=== PATIENT | male | born 1975 | race American Indian/Alaskan Native ===

== ENCOUNTER 2016-10-18 12:06 | Emergency (ER) | payer SELFPAY ==
[2016-10-18 13:53] LABS: Basophils % (Auto) 0.2 % (0.0-1.8); Eosinophils % (Auto) 0.9 % (0.0-4.3); Hematocrit 41.2 % (35.5-45.6); Hemoglobin 13.4 gm/dl (11.8-15.2); Mean Corpuscular HGB Conc 33 % (32-34); Mean Corpuscular Hemoglobin 29 pg (28-32); Mean Corpuscular Volume 88 fl (84-94); Platelet Count 354 K/mm3 (140-440); Red Blood Count 4.72 M/mm3 (3.65-5.03); Red Cell Distribution Width 14.2 % (13.2-15.2); White Blood Count 13.9 K/mm3 (4.5-11.0)
[2016-10-18 14:13] LABS: BUN/Creatinine Ratio 18.57; Blood Urea Nitrogen 13 mg/dL (9-20); Calcium 9.3 mg/dL (8.4-10.2); Carbon Dioxide 29 mmol/L (22-30); Chloride 100.5 mmol/L (98-107); Glucose 121 mg/dL (75-100); Sodium 141 mmol/L (137-145)
[2016-10-18] MEDS ORDERED: ZOFRAN ONE (14:22)
[2016-10-18 14:23] LABS: Anion Gap 15 mmol/L
[2016-10-18] MEDS ORDERED: ANTIVERT ONE (14:23)
[2016-10-18] MEDS ORDERED: ANTIVERT PO ONE (14:27)
[2016-10-18] MEDS ORDERED: ZOFRAN IV ONE (14:27)
--- NOTE | 2016-10-18 15:11 | Cat Scan Report ---
FINAL REPORT PROCEDURE: CT HEAD/BRAIN WO CON TECHNIQUE: Computerized tomography of the head was performed without contrast material. HISTORY: vetigo, vomiting COMPARISON: No prior studies are available for comparison. FINDINGS: Skull and scalp: Normal. Paranasal sinuses: Mucosal thickening left maxillary sinus and left lower frontal sinus anterior ethmoid chamber. Ventricles and subarachnoid spaces: Normal. Cerebrum: No evidence of hemorrhage, acute infarction or mass . Cerebellum and brainstem: No evidence of hemorrhage, acute infarction or mass. Vasculature: Normal. Comments: Morbid obesity. IMPRESSION: No acute intracranial disease suspected
--- NOTE | 2016-10-18 15:20 | Emergency Department Report ---
ED Dizziness HPI - General Chief Complaint: Chest Pain Stated Complaint: CHEST PAIN/DIZZINESS Time Seen by Provider: 10/18/16 14:15 Source: EMS Mode of arrival: Stretcher Limitations: No Limitations - History of Present Illness Initial Comments: 41-year-old male with a past medical history of obesity hypertension presents to the hospital complaining of dizziness since this a.m. Contrary to triage patient denies chest pain. Patient states he's had a toothache for several days and take [id number] acetaminophen pills and ibuprofen. Today he developed a spinning sensation worse with sitting up and walking. Positive associated nausea and vomiting that started here. He denies headache, chest pain, shortness of breath, fever, focal weakness, tinnitus, focal numbness, or diarrhea. Pt non compliant with BP meds x several months - Related Data Previous Rx's Medication Instructions Recorded Last Taken Type Albuterol Sulfate [Ventolin HFA] 2 puff IH Q4H PRN #1 hfa.aer.ad 11/04/14 Unknown Rx Diazepam Tab [Valium] 5 mg PO TID PRN #14 tablet 10/18/16 Unknown Rx Lisinopril/Hydrochlorothiazide 1 each PO DAILY #30 tablet 10/18/16 Unknown Rx [Zestoretic 20-12.5 mg] Meclizine [Antivert] 25 mg PO TID PRN #30 tablet 10/18/16 Unknown Rx Ondansetron [Zofran Odt] 4 mg PO Q8HR PRN #20 tab.rapdis 10/18/16 Unknown Rx Allergies Allergy/AdvReac Type Severity Reaction Status Date / Time No Known Allergies Allergy Verified 10/23/15 20:40 ED Review of Systems ROS: Stated complaint: CHEST PAIN/DIZZINESS Other details as noted in HPI Comment: All other systems reviewed and negative Other: Constitutional: No fevers chills Eyes: No eye pain visual changes ENT: No ear pain or throat pain Neck: Denies pain Respiratory: Denies cough wheezing shortness of breath Cardiovascular: Denies chest pain, palpitations, syncope GI: Denies abdominal pain : Denies dysuria, urinary frequency, or urgency Musculoskeletal: Denies back pain Skin: Denies rash, lesions, erythema Neurologic: Denies headache, numbness, weakness Psychiatric: Denies suicidal ideation, hallucinations ED Past Medical Hx - Past Medical History Hx Hypertension: Yes Hx Asthma: Yes - Surgical History Additional Surgical History: cyst removed on left leg - Social History Smoking Status: Current Every Day Smoker Substance Use Type: None - Medications Home Medications: Home Medications Medication Instructions Recorded Confirmed Last Taken Type Albuterol Sulfate [Ventolin HFA] 2 puff IH Q4H PRN #1 hfa.aer.ad 11/04/14 Unknown Rx Diazepam Tab [Valium] 5 mg PO TID PRN #14 tablet 10/18/16 Unknown Rx Lisinopril/Hydrochlorothiazide 1 each PO DAILY #30 tablet 10/18/16 Unknown Rx [Zestoretic 20-12.5 mg] Meclizine [Antivert] 25 mg PO TID PRN #30 tablet 10/18/16 Unknown Rx Ondansetron [Zofran Odt] 4 mg PO Q8HR PRN #20 tab.rapdis 10/18/16 Unknown Rx ED Physical Exam - General Limitations: No Limitations - Other Other exam information: General: No limitations, patient is alert in no acute distress Head exam: Atraumatic, normocephalic Eyes exam: Normal appearance, pupils equal reactive to light, extraocular movements intact, nystagmus with left gaze and upper gaze ENT: Moist mucous membrane, normal oropharynx, fractured tooth number 12 Neck exam: Normal inspection, full range of motion, no meningismus nontender Respiratory exam: Clear to auscultation bilateral, no wheezes, rales, crackles Cardiovascular: Normal rate and rhythm, normal heart sounds Abdomen: Soft, nondistended, and nontender, with normal bowel sounds, no rebound, or guarding Extremity: Full range of motion normal inspection no deformity Back: Normal Inspection, full range of motion, no tenderness Neurologic: Alert, oriented x3, cranial nerves intact, no motor or sensory deficit, gwqrxy-[id number] function intact Psychiatric: normal affect, normal mood Skin: Warm, dry, intact ED Course Vital Signs 10/18/16 10/18/16 14:16 16:20 Pulse Rate 55 L 60 Respiratory 17 19 Rate Blood Pressure 140/90 169/99 [Left] O2 Sat by Pulse 100 100 Oximetry - Reevaluation(s) Reevaluation #1: 10/18/16 18:27 Initially after meclizine patient still complained of vertigo. After Valium 5 mg by mouth symptoms have improved well enough that patient could ambulate although still has nystagmus ED Medical Decision Making - Lab Data Result diagrams: 10/18/16 13:43 10/18/16 13:39 Lab Results 10/18/16 10/18/16 Range/Units 13:39 13:43 WBC 13.9 H (4.5-11.0) K/mm3 RBC 4.72 (3.65-5.03) M/mm3 Hgb 13.4 (11.8-15.2) gm/dl Hct 41.2 (35.5-45.6) % MCV 88 (84-94) fl MCH 29 (28-32) pg MCHC 33 (32-34) % RDW 14.2 (13.2-15.2) % Plt Count 354 (140-440) K/mm3 Lymph % (Auto) 10.5 L (13.4-35.0) % Warren % (Auto) 3.2 (0.0-7.3) % Eos % (Auto) 0.9 (0.0-4.3) % Baso % (Auto) 0.2 (0.0-1.8) % Lymph # 1.5 (1.2-5.4) K/mm3 Warren # 0.4 (0.0-0.8) K/mm3 Eos # 0.1 (0.0-0.4) K/mm3 Baso # 0.0 (0.0-0.1) K/mm3 Seg Neutrophils % 85.2 H (40.0-70.0) % Seg Neutrophils # 11.9 H (1.8-7.7) K/mm3 Sodium 141 (137-145) mmol/L Potassium 4.0 (3.6-5.0) mmol/L Chloride 100.5 (98-107) mmol/L Carbon Dioxide 29 (22-30) mmol/L Anion Gap 15 mmol/L BUN 13 (9-20) mg/dL Creatinine 0.7 L (0.8-1.5) mg/dL Estimated GFR > 60 ml/min BUN/Creatinine Ratio 18.57 % Glucose 121 H (75-100) mg/dL Calcium 9.3 (8.4-10.2) mg/dL Troponin T < 0.010 (0.00-0.029) ng/mL - Radiology Data Radiology results: report reviewed (ct head: naf) - Medical Decision Making CT lab work unremarkable. Patient was treated for peripheral vertigo and follow -up will be encouraged. BP med will be refilled - Differential Diagnosis vertigo, Mnire's, electrolyte abnormality Critical Care Time: No Critical care attestation.: If time is entered above; I have spent that time in minutes in the direct care of this critically ill patient, excluding procedure time. ED Disposition Clinical Impression: Peripheral vertigo, Noncompliance with medication regimen HTN (hypertension) Qualifiers: Hypertension type: essential hypertension Qualified Code(s): I10 - Essential ( primary) hypertension Fracture, tooth Qualifiers: Encounter type: initial encounter Disposition: DISCHARGED TO HOME OR SELFCARE Is pt being admited?: No Does the pt Need Aspirin: No Condition: Stable Instructions: Vertigo (ED), Hypertension (ED) Additional Instructions: Take the medication as prescribed. Return if symptom worsen. Do not drive if severe dizziness persists. Both Meclizine and Valium cause sedation therefore driving not recommended while taking these medications Prescriptions: Diazepam Tab [Valium] 5 mg PO TID PRN #14 tablet PRN Reason: Vertigo Lisinopril/Hydrochlorothiazide [Zestoretic 20-12.5 mg] 1 each PO DAILY #30 tablet Meclizine [Antivert] 25 mg PO TID PRN #30 tablet PRN Reason: Vertigo Ondansetron [Zofran Odt] 4 mg PO Q8HR PRN #20 tab.rapdis PRN Reason: Vomiting Referrals: [facility] [Provider Group] - 3-5 Days CHRISTINA BOBBY MD [Staff Physician] - 3-5 Days (ENT) Time of Disposition: 18:28
[2016-10-18] MEDS ORDERED: VALIUM PO ONE (16:24)
[2016-10-18] MEDS ORDERED: ZESTRIL PO ONE (18:29)
[2016-10-18] MEDS ORDERED: HCTZ PO ONE (18:30)
[2016-10-18 19:07] VITALS: BP 197/90
== END 2016-10-18 19:01 | disposition home or self-care (01) ==
LOC: ED 12:06
DX: S02.5XXA Fracture of tooth (traumatic), initial encounter for closed fracture (principal); R42 Dizziness and giddiness; Z91.14 Patient's other noncompliance with medication regimen; J45.909 Unspecified asthma, uncomplicated; F17.200 Nicotine dependence, unspecified, uncomplicated; I10 Essential (primary) hypertension; X58.XXXA Exposure to other specified factors, initial encounter; Y93.9 Activity, unspecified; Y92.9 Unspecified place or not applicable; Y99.9 Unspecified external cause status
CPT/HCPCS: 36415; 70450; 80048; 84484; 85025; 96374; 99285; J2405

== ENCOUNTER 2017-06-20 00:31 | Emergency (ER) | payer OTHER ==
[2017-06-20] MEDS ORDERED: CATAPRES PO ONE (03:33)
[2017-06-20 06:13] LABS: Basophils % (Auto) 0.3 % (0.0-1.8); Eosinophils % (Auto) 2.4 % (0.0-4.3); Hemoglobin 13.8 gm/dl (11.8-15.2); Mean Corpuscular HGB Conc 33 % (32-34); Mean Corpuscular Hemoglobin 29 pg (28-32); Mean Corpuscular Volume 87 fl (84-94); Platelet Count 327 K/mm3 (140-440); Red Blood Count 4.81 M/mm3 (3.65-5.03); Red Cell Distribution Width 14.2 % (13.2-15.2)
[2017-06-20 06:17] LABS: Anion Gap 16 mmol/L; BUN/Creatinine Ratio 14.28; Blood Urea Nitrogen 10 mg/dL (9-20); Calcium 9.8 mg/dL (8.4-10.2); Carbon Dioxide 31 mmol/L (22-30); Chloride 98.2 mmol/L (98-107); Glucose 96 mg/dL (75-100); Potassium 3.5 mmol/L (3.6-5.0); Sodium 142 mmol/L (137-145)
[2017-06-20] MEDS ORDERED: ZOFRAN IV ONE (11:50)
[2017-06-20] MEDS ORDERED: APRESOLINE IV ONE (11:52)
--- NOTE | 2017-06-20 12:16 | Emergency Department Report ---
ED Dizziness HPI - General Chief Complaint: Dizziness Stated Complaint: DIZZINESS Time Seen by Provider: 06/20/17 11:40 Source: patient Mode of arrival: Ambulatory Limitations: No Limitations - History of Present Illness Initial Comments: 41-year-old male presents to the ER with complaints of dizziness, lightheadedness, headaches 2 days. Patient is a known hypertensive, noncompliant with medications. He denies chest pain, no palpitations, no shortness of breath, nausea vomiting, no diarrhea. MD Complaint: dizziness, lightheadedness -: Gradual, days(s) (2) Timing: gradual onset Description: lightheadedness, off-balance History of Same: No History of Trauma: No Severity: moderate Improves With: nothing Worsens With: nothing Associated Symptoms: weakness. denies: ataxia, chest pain, confusion, cough, diaphoresis, fever/chills, loss of appetite, malaise, rash, seizure, shortness of breath, syncope, other - Related Data Previous Rx's Medication Instructions Recorded Last Taken Type Albuterol Sulfate [Ventolin HFA] 2 puff IH Q4H PRN #1 hfa.aer.ad 11/04/14 Unknown Rx Diazepam Tab [Valium] 5 mg PO TID PRN #14 tablet 10/18/16 Unknown Rx Lisinopril/Hydrochlorothiazide 1 each PO DAILY #30 tablet 10/18/16 Unknown Rx [Zestoretic 20-12.5 mg] Meclizine [Antivert] 25 mg PO TID PRN #30 tablet 10/18/16 Unknown Rx Ondansetron [Zofran Odt] 4 mg PO Q8HR PRN #20 tab.rapdis 10/18/16 Unknown Rx Allergies Allergy/AdvReac Type Severity Reaction Status Date / Time No Known Allergies Allergy Verified 10/23/15 20:40 ED Review of Systems ROS: Stated complaint: DIZZINESS Other details as noted in HPI Constitutional: malaise, weakness. denies: chills, fever Eyes: other (blurred vision) ENT: denies: ear pain, throat pain, dental pain, hearing loss Respiratory: denies: no symptoms reported, cough, orthopnea, shortness of breath Cardiovascular: denies: chest pain, palpitations, dyspnea on exertion, edema, syncope, paroxysmal nocturnal dyspnea Endocrine: no symptoms reported Gastrointestinal: denies: abdominal pain, nausea, vomiting, diarrhea, constipation, hematemesis, melena Genitourinary: denies: urgency, dysuria, frequency, hematuria, discharge Musculoskeletal: denies: back pain, joint swelling, arthralgia Neurological: headache, weakness, other (dizziness) ED Past Medical Hx - Past Medical History Hx Hypertension: Yes Hx Asthma: Yes Additional medical history: OBESITY, VERTIGO - Surgical History Additional Surgical History: cyst removed on left leg - Social History Smoking Status: Current Every Day Smoker Substance Use Type: None - Medications Home Medications: Home Medications Medication Instructions Recorded Confirmed Last Taken Type Albuterol Sulfate [Ventolin HFA] 2 puff IH Q4H PRN #1 hfa.aer.ad 11/04/14 Unknown Rx Diazepam Tab [Valium] 5 mg PO TID PRN #14 tablet 10/18/16 Unknown Rx Lisinopril/Hydrochlorothiazide 1 each PO DAILY #30 tablet 10/18/16 Unknown Rx [Zestoretic 20-12.5 mg] Meclizine [Antivert] 25 mg PO TID PRN #30 tablet 10/18/16 Unknown Rx Ondansetron [Zofran Odt] 4 mg PO Q8HR PRN #20 tab.rapdis 10/18/16 Unknown Rx ED Physical Exam - General Limitations: No Limitations General appearance: alert, in distress ([id number]), other (obese patient) - Head Head exam: Present: atraumatic, normocephalic, normal inspection - Eye Eye exam: Present: normal appearance, PERRL, EOMI - ENT ENT exam: Present: normal exam, normal orophraynx, mucous membranes moist - Neck Neck exam: Present: normal inspection, full ROM. Absent: tenderness, meningismus, lymphadenopathy, thyromegaly - Respiratory Respiratory exam: Present: normal lung sounds bilaterally. Absent: respiratory distress, wheezes, rales, rhonchi, stridor, chest wall tenderness, accessory muscle use, decreased breath sounds, prolonged expiratory - Cardiovascular Cardiovascular Exam: Present: regular rate, normal rhythm, normal heart sounds. Absent: bradycardia, tachycardia, irregular rhythm, systolic murmur, diastolic murmur - GI/Abdominal GI/Abdominal exam: Present: soft, distended (obese abdomen), normal bowel sounds. Absent: tenderness, guarding, rebound, hypoactive bowel sounds, organomegaly - Rectal Rectal exam: Present: deferred - Extremities Exam Extremities exam: Present: normal inspection, full ROM, normal capillary refill. Absent: pedal edema, joint swelling, calf tenderness - Back Exam Back exam: Present: normal inspection, full ROM. Absent: tenderness, CVA tenderness (R), CVA tenderness (L), muscle spasm, paraspinal tenderness, vertebral tenderness - Neurological Exam Neurological exam: Present: alert, altered, CN II-XII intact ED Course Vital Signs 06/20/17 06/20/17 06/20/17 00:31 03:27 03:55 Temperature 98.1 F 98.1 F Pulse Rate 68 68 68 Respiratory 20 Rate Blood Pressure 216/116 216/112 Blood Pressure 216/116 [Left] O2 Sat by Pulse 98 98 Oximetry 06/20/17 06/20/17 06/20/17 10:10 10:16 11:48 Temperature Pulse Rate 101 H 107 H 73 Respiratory 18 18 22 Rate Blood Pressure 135/81 144/87 Blood Pressure [Left] O2 Sat by Pulse 100 100 Oximetry 06/20/17 06/20/17 06/20/17 12:01 12:15 12:24 Temperature Pulse Rate 71 70 82 Respiratory 18 15 Rate Blood Pressure 188/99 144/87 197/95 Blood Pressure [Left] O2 Sat by Pulse 98 100 Oximetry 06/20/17 06/20/17 12:31 13:15 Temperature Pulse Rate 82 Respiratory 15 Rate Blood Pressure 197/95 197/95 Blood Pressure [Left] O2 Sat by Pulse 98 100 Oximetry ED Medical Decision Making - Lab Data Result diagrams: 06/20/17 05:20 06/20/17 12:17 - EKG Data -: EKG Interpreted by Ia EKG shows normal: sinus rhythm - EKG Data 06/20/17 13:44 EKG shows normal sinus rhythm rate of 87 beats per minutes, leftward axis, left ventricular hypertrophy with repolarization abnormalities, nonspecific ST changes in V1 and V2., T-wave inversion in aVL - Medical Decision Making 41-year-old noncompliant male with history of hypertension, Blood pressures remains elevated in ED despite attempts at decreasing it with 20 mg Hydrallazine.. D/w Hospitaliist, he accepts, pt admission Critical Care Time: No Critical care attestation.: If time is entered above; I have spent that time in minutes in the direct care of this critically ill patient, excluding procedure time. ED Disposition Clinical Impression: Accelerated hypertension Disposition: DC-09 OP ADMIT IP TO THIS HOSP Is pt being admited?: Yes Does the pt Need Aspirin: Yes Condition: Stable Instructions: Hypertension (ED) Referrals: PRIMARY CARE, [Primary Care Provider] - 3-5 Days Time of Disposition: 13:51
--- NOTE | 2017-06-20 12:41 | XRay Report ---
AP CHEST: HISTORY: Lightheadedness, dizziness, syncope AP view of the chest demonstrates a normal mediastinal and cardiac contour with clear lungs and normal bony and soft tissue structures. IMPRESSION: Unremarkable AP chest.
--- NOTE | 2017-06-20 13:00 | Cat Scan Report ---
CT HEAD WITHOUT CONTRAST: HISTORY: Lightheadedness, dizziness. Serial contiguous axial images were obtained through the cranium. Intravenous contrast material was not administered. The ventricles are normal in size and appearance. There is no mass effect or midline shift. No areas of abnormally increased or decreased attenuation are seen. No mass lesion is seen. The mastoid air cells and visualized portions of the sinuses are normal. Chronic left medial orbital wall fracture is noted. IMPRESSION: Cranial CT scan within normal limits.
[2017-06-20 13:04] LABS: INR 0.91 (0.87-1.13)
[2017-06-20 13:09] LABS: Creatine Kinase MB 1.9 ng/mL (0.0-4.0)
[2017-06-20 13:10] LABS: Alanine Aminotransferase 58 units/L (7-56); Albumin 4.3 g/dL (3.9-5); Albumin/Globulin Ratio 1.2 %; Alkaline Phosphatase 94 units/L (35-129); Anion Gap 19 mmol/L; BUN/Creatinine Ratio 16.66; Blood Urea Nitrogen 10 mg/dL (9-20); Calcium 9.8 mg/dL (8.4-10.2); Carbon Dioxide 25 mmol/L (22-30); Chloride 98.3 mmol/L (98-107); Creatine Kinase 122 units/L (55-170); Glucose 97 mg/dL (75-100); Potassium 3.6 mmol/L (3.6-5.0); Sodium 139 mmol/L (137-145)
[2017-06-20 13:37] LABS: Urine Drugs of Abuse Note Disclamer
--- NOTE | 2017-06-20 13:46 | History and Physical Report ---
Medications and Allergies Allergies Allergy/AdvReac Type Severity Reaction Status Date / Time No Known Allergies Allergy Verified 10/23/15 20:40 Home Medications Medication Instructions Recorded Confirmed Last Taken Type Albuterol Sulfate [Ventolin HFA] 2 puff IH Q4H PRN #1 hfa.aer.ad 11/04/14 Unknown Rx Diazepam Tab [Valium] 5 mg PO TID PRN #14 tablet 10/18/16 Unknown Rx Lisinopril/Hydrochlorothiazide 1 each PO DAILY #30 tablet 10/18/16 Unknown Rx [Zestoretic 20-12.5 mg] Meclizine [Antivert] 25 mg PO TID PRN #30 tablet 10/18/16 Unknown Rx Ondansetron [Zofran Odt] 4 mg PO Q8HR PRN #20 tab.rapdis 10/18/16 Unknown Rx Exam - Constitutional Vitals: Temp Pulse Resp BP Pulse Ox 98.1 F 82 15 197/95 100 06/20/17 03:27 06/20/17 12:31 06/20/17 12:31 06/20/17 13:15 06/20/17 13:15 Results - Labs CBC & Chem 7: 06/20/17 05:20 06/20/17 12:17 Labs: Abnormal lab results 06/20/17 06/20/17 Range/Units 05:20 12:17 Potassium 3.5 L (3.6-5.0) mmol/L Carbon Dioxide 31 H (22-30) mmol/L Creatinine 0.7 L 0.6 L (0.8-1.5) mg/dL ALT 58 H (7-56) units/L
[2017-06-20] MEDS ORDERED: ZESTRIL PO ONE (13:47)
[2017-06-20] MEDS ORDERED: HCTZ PO ONE (13:47)
[2017-06-20] MEDS ORDERED: ECOTRIN PO ONE (13:50)
[2017-06-20 14:05] LABS: Bilirubin,Urine NEG (Negative); Blood,Urine NEG (Negative); Ketones,Urine NEG (Negative); Leukocyte Esterase,Urine SM (Negative); Mucus,Urine 2+ /HPF; Nitrite,Urine NEG (Negative)
[2017-06-20 14:54] VITALS: BP 138/82
[2017-06-20] MEDS ORDERED: ZOSYN/NS 3.375GM/50ML 3.375 GM/50 ML BAG IV SCH (16:00)
== END 2017-06-20 16:12 | disposition admitted as inpatient to this hospital (09) ==
LOC: ED 00:31
DX: I10 Essential (primary) hypertension (principal); J45.909 Unspecified asthma, uncomplicated; F17.200 Nicotine dependence, unspecified, uncomplicated
CPT/HCPCS: 36415; 70450; 71010; 80048; 80053; 80307; 81001; 82550; 82553; 84484; 85025; 85379; 85610; 93005; 93010; 96374; 96375; 99285; G0480; J0360; J2405; 80320

== ENCOUNTER 2017-11-17 03:52 | Inpatient (IN) | payer OTHER ==
[2017-11-17] MEDS ORDERED: PROVENTIL IH ONE ×2 (04:07→05:23)
[2017-11-17] MEDS ORDERED: ATROVENT IH ONE ×2 (04:07→05:23)
[2017-11-17] MEDS ORDERED: MAGNESIUM SULFATE 2GM/50ML 2 GM/50 ML BAG IV ONE ×2 (04:12→04:15)
[2017-11-17] MEDS ORDERED: APRESOLINE IV ONE (04:28)
--- NOTE | 2017-11-17 04:55 | XRay Report ---
FINAL REPORT EXAM: XR CHEST 1V AP HISTORY: Chest Pain TECHNIQUE: A portable upright view of the chest was submitted. FINDINGS: The heart is [id number] enlarged. The lungs are clear. Pleural fluid is not seen. The bones and soft tissues reveal generalized obesity. IMPRESSION: Cardiomegaly. No acute process in the chest.
[2017-11-17 05:22] LABS: Basophils % (Auto) 0.3 % (0.0-1.8); Eosinophils # (Auto) 0.1 K/mm3 (0.0-0.4); Eosinophils % (Auto) 1.1 % (0.0-4.3); Hematocrit 39.5 % (35.5-45.6); Hemoglobin 12.8 gm/dl (11.8-15.2); Lymphocytes # (Auto) 2.6 K/mm3 (1.2-5.4); Lymphocytes % (Auto) 20.4 % (13.4-35.0); Mean Corpuscular HGB Conc 32 % (32-34); Mean Corpuscular Hemoglobin 29 pg (28-32); Mean Corpuscular Volume 88 fl (84-94); Monocytes # (Auto) 0.4 K/mm3 (0.0-0.8); Monocytes % (Auto) 3.1 % (0.0-7.3); Platelet Count 301 K/mm3 (140-440); Red Blood Count 4.47 M/mm3 (3.65-5.03); Red Cell Distribution Width 13.6 % (13.2-15.2)
--- NOTE | 2017-11-17 05:35 | Emergency Department Report ---
HPI - General Chief Complaint: Dyspnea/Respdistress Time Seen by Provider: 11/17/17 04:26 - HPI HPI: 42-year-old Karen male presents to the emergency department from home with complaint of shortness of breath that started this morning. He has a history of asthma and uses albuterol inhaler and nebulizer without much relief. He complains of a dry cough, some chest wall pain with coughing, wheezing. He also presents with very elevated blood pressure and has a history of hypertension but is not taking his meds about 2 months. He used to be on lisinopril and said that it caused some swelling of his lips so he stopped taking it. He does not have a primary care physician. No recent travel. Denies any illicit drug use or recent alcohol use. ED Past Medical Hx - Past Medical History Previous Medical History?: Yes Hx Hypertension: Yes Hx Asthma: Yes Additional medical history: OBESITY, VERTIGO - Surgical History Past Surgical History?: Yes Additional Surgical History: cyst removed on left leg - Social History Smoking Status: Current Every Day Smoker Substance Use Type: None - Medications Home Medications: Home Medications Medication Instructions Recorded Confirmed Last Taken Type Albuterol Sulfate [Ventolin HFA] 2 puff IH Q4H PRN #1 hfa.[email or web address].ad 11/04/14 Unknown Rx ED Review of Systems ROS: Stated complaint: ASTHMA Other details as noted in HPI Comment: All other systems reviewed and negative Constitutional: denies: chills, fever Eyes: denies: eye pain, eye discharge, vision change ENT: denies: ear pain, throat pain Respiratory: cough, shortness of breath, wheezing Cardiovascular: denies: palpitations, edema Gastrointestinal: denies: abdominal pain, nausea, diarrhea Genitourinary: denies: urgency, dysuria Musculoskeletal: denies: back pain, joint swelling, arthralgia Skin: denies: rash, lesions Neurological: denies: headache, weakness, paresthesias Physical Exam - Physical Exam Vital Signs: Vital Signs 11/17/17 11/17/17 11/17/17 03:58 04:10 04:23 Temperature 98.7 F Pulse Rate 106 H 110 H Pulse Rate [ 107 H Anterior Bilateral Throughout] Respiratory 32 H Rate Respiratory 36 H Rate [Anterior Bilateral Throughout] Blood Pressure 238/110 O2 Sat by Pulse 98 100 Oximetry 02/11/17/17 11/17/17 04:35 04:46 05:27 Temperature Pulse Rate 106 H Pulse Rate [ 97 H 115 H Anterior Bilateral Throughout] Respiratory Rate Respiratory 20 24 Rate [Anterior Bilateral Throughout] Blood Pressure 226/129 O2 Sat by Pulse Oximetry Physical Exam: GENERAL: The patient is well-developed well-nourished. HENT: Normocephalic. Atraumatic. Patient has moist mucous membranes. EYES: Extraocular motions are intact. Pupils equal reactive to light bilaterally. NECK: Supple. Trachea is midline. CHEST/LUNGS: Mild to moderate wheezing throughout the chest. There is tachypnea with some accessory muscle use and conversational dyspnea. There is some respiratory distress noted. HEART/CARDIOVASCULAR: Regular. There is mild to moderate tachycardia. There is no murmur. ABDOMEN: Abdomen is soft, nontender. Patient has normal bowel sounds. Morbidly obese habitus. SKIN: Skin is warm and dry. NEURO: The patient is awake, alert, and oriented. The patient is cooperative. The patient has no focal neurologic deficits. The patient has normal speech. MUSCULOSKELETAL: There is no tenderness or deformity. There is no limitation range of motion. There is no evidence of acute injury. ED Course Vital Signs 11/17/17 11/17/17 11/17/17 03:58 04:10 04:23 Temperature 98.7 F Pulse Rate 106 H 110 H Pulse Rate [ 107 H Anterior Bilateral Throughout] Respiratory 32 H Rate Respiratory 36 H Rate [Anterior Bilateral Throughout] Blood Pressure 238/110 O2 Sat by Pulse 98 100 Oximetry 11/17/17 11/17/17 11/17/17 04:35 04:46 05:27 Temperature Pulse Rate 106 H Pulse Rate [ 97 H 115 H Anterior Bilateral Throughout] Respiratory Rate Respiratory 20 24 Rate [Anterior Bilateral Throughout] Blood Pressure 226/129 O2 Sat by Pulse Oximetry ED Medical Decision Making - Lab Data Result diagrams: 11/18/17 05:07 11/18/17 05:07 - EKG Data -: EKG Interpreted by Me EKG shows normal: sinus rhythm, axis (left axis deviation), intervals, QRS complexes (LVH), ST-T waves (T-wave inversions to the lateral leads 1 and aVL) Rate: tachycardia (104 bpm) - EKG Data When compared to previous EKG there are: changes noted (T-wave inversions to the lateral leads 1 and aVL) Interpretation: other (sinus rhythm, left axis deviation, tachycardia at 104 bpm , T-wave inversions to the lateral leads 1 and aVL) - Radiology Data Radiology results: report reviewed, image reviewed interpreted by me: Chest x-ray does not show any acute process. There are no pleural effusions, obvious pneumonia and there is no pneumothorax. EXAM: CT ANGIO CHEST HISTORY: sob, elevated dimer TECHNIQUE: A CT angiogram was performed following the intravenous injection of 100 cc of Omnipaque 350. Rotational, sagittal and coronal MIP reconstructions were obtained. FINDINGS: There is no evidence of pulmonary embolus or aortic dissection. The heart size is normal. There is no evidence of pericardial effusion or lymphadenopathy. The lungs are negative for infiltrates or effusions. There scarring in the left lower lobe. In the upper abdomen the adrenal glands appear normal. The skeletal structures reveal multilevel disc degeneration in the thoracic spine. At the thoracic inlet the thyroid gland appears normal. IMPRESSION: No evidence of pulmonary embolus or aortic dissection. Localized scarring in the left lower lobe. No acute process in the chest. Transcribed By: RB Dictated By: ARNOL LEÓN MD Electronically Authenticated By: ARNOL LEÓN MD Signed Date/Time: 11/17/17 0304 - Medical Decision Making Patient presents with very elevated blood pressure with medication compliance, as well as some shortness of breath and/or respiratory distress that appears consistent with an asthma exacerbation. Chest x-ray does not show any pneumonia or any other acute processes. His EKG does not show any ST elevation LA or dysrhythmia but there are some new T-wave inversions to the lateral leads that were not seen there from 2016. So far his labs and mostly unremarkable except for the d-dimer. This includes no leukocytosis, electrolyte abnormalities, renal insufficiency with glucose abnormalities. Because of his shortness of breath and tachycardia, despite no hypoxia, a d-dimer was done that came back elevated at greater than 1000. This reason the patient will have a CT angiography of the chest done. He has been given some hydralazine and Cardizem his blood pressure has improved but still remains elevated. Once the patient received a long breathing treatment, steroids, magnesium, the patient's breathing has improved and he no longer appears to be in respiratory distress. For his intermittent chest discomfort, asthma exacerbation, hypertensive urgency, the patient will be admitted to the hospital. I discussed the patient with the overnight hospitalist, Dr. Castillo, who was asked for the morning hospitalist team to be notified when the CT angiography has been completed. - Differential Diagnosis Asthma, Pneumonia, PE, LA Critical Care Time: No Critical care attestation.: If time is entered above; I have spent that time in minutes in the direct care of this critically ill patient, excluding procedure time. ED Disposition Clinical Impression: Hypertensive urgency, Morbid obesity, Respiratory distress Asthma exacerbation Qualifiers: Asthma severity: unspecified severity Chest pain Qualifiers: Chest pain type: unspecified Qualified Code(s): R07.9 - Chest pain, unspecified Disposition: 09 OP ADMIT IP TO THIS HOSP Is pt being admited?: Yes Does the pt Need Aspirin: Yes Condition: Stable Time of Disposition: 06:19
[2017-11-17 05:37] LABS: BUN/Creatinine Ratio 16; Blood Urea Nitrogen 13 mg/dL (9-20); Calcium 9.2 mg/dL (8.4-10.2); Hemolysis Index 10
[2017-11-17 05:38] LABS: INR 0.93 (0.87-1.13)
[2017-11-17] MEDS ORDERED: CARDIZEM IV ONE (05:44)
[2017-11-17] MEDS ORDERED: BABY ASPIRIN PO ONE (06:19)
--- NOTE | 2017-11-17 07:09 | Cat Scan Report ---
FINAL REPORT EXAM: CT ANGIO CHEST HISTORY: sob, elevated dimer TECHNIQUE: A CT angiogram was performed following the intravenous injection of 100 cc of Omnipaque 350. Rotational, sagittal and coronal MIP reconstructions were obtained. FINDINGS: There is no evidence of pulmonary embolus or aortic dissection. The heart size is normal. There is no evidence of pericardial effusion or lymphadenopathy. The lungs are negative for infiltrates or effusions. There scarring in the left lower lobe. In the upper abdomen the adrenal glands appear normal. The skeletal structures reveal multilevel disc degeneration in the thoracic spine. At the thoracic inlet the thyroid gland appears normal. IMPRESSION: No evidence of pulmonary embolus or aortic dissection. Localized scarring in the left lower lobe. No acute process in the chest.
[2017-11-17] MEDS ORDERED: ZOFRAN IV PRN (07:43)
[2017-11-17] MEDS ORDERED: TYLENOL PO PRN (07:43)
[2017-11-17] MEDS ORDERED: DULCOLAX PR PRN (07:43)
[2017-11-17] MEDS ORDERED: PROVENTIL IH PRN (07:43)
[2017-11-17] MEDS ORDERED: NORCO 5/325 PO PRN (07:43)
[2017-11-17] MEDS ORDERED: MILK OF MAGNESIA PO PRN (07:43)
[2017-11-17] MEDS ORDERED: APRESOLINE IV PRN (07:48)
[2017-11-17] MEDS ORDERED: NORVASC PO SCH (08:00)
[2017-11-17] MEDS ORDERED: HCTZ PO SCH (08:00)
--- NOTE | 2017-11-17 08:53 | History and Physical Report ---
History of Present Illness Date of admission: 11/17/17 07:43 Chief complaint: SOB History of present illness: 42-year-old -[place] woman with past medical history significant for morbid obesity, hypertension, asthma, medication noncompliance presented to the emergency department complaining of shortness of breath that started yesterday. The patient has been taking his inhaler without improvement then he presented to the emergency department. Patient had cough since yesterday but denied fever , chills, runny nose, headache or joint pain. Patient denied chest pain, palpitation, leg swelling. Patient was on lisinopril and discontinued lisinopril a month and half ago after he developed lip swelling. He didn't have a primary care physician. REVIEW OF SYSTEMS: GENERAL: no fatigue, no fever HEAD: no head ache EYES: no blurry vision, no acute visual loss EARS: no hearing loss, no discharge, no earache NOSE: no stuffiness, no sneezing, no discharge MOUTH, THROAT AND NECK: no bleeding gums, no sore throat, no swollen neck CARDIAC: no palpitations, no dyspnea on exertion, no orthopnea, no PND, no edema , no chest pain RESPIRATORY: As stated in the HPI. GI: no decreased appetite, no nausea, no vomiting, no dysphagia, no diarrhea, no constipation, no abdominal pain URINARY: no change in frequency, no urgency, no polyuria, no hematuria, no incontinence MUSCULOSKELETAL: no muscle weakness, no pain, no joint stiffness NEUROLOGIC: no loss of sensation/numbness, no tingling, no tremors, no weakness/ paralysis HEMATOLOGIC: no anemia, no easy bruising SKIN: no rashes ENDOCRINE: no heat/cold intolerance, no polyuria, no polydipsia, no thyroid problems, no diabetes PSYCHIATRIC: no anxiety, no depression, no suicidal ideations Past History Past Medical History: hypertension, other (asthmaasthma) Past Surgical History: No surgical history Social history: smoking (3 cigarettes a day), full code. denies: alcohol abuse , prescription drug abuse, IV drug use Family history: no significant family history Medications and Allergies Allergies Allergy/AdvReac Type Severity Reaction Status Date / Time lisinopril Allergy Swelling Verified 11/17/17 04:26 Home Medications Medication Instructions Recorded Confirmed Last Taken Type Albuterol Sulfate [Ventolin HFA] 2 puff IH Q4H PRN #1 hfa.aer.ad 02/01/15 02/14/ 18 Unknown Rx Active Meds: Active Medications Acetaminophen (Tylenol) 650 mg PO Q4H PRN PRN Reason: Pain MILD(1-3)/Fever >100.5/MICHEL Acetaminophen/Hydrocodone Bitart ([place] 5/325) 1 each PO Q6H PRN PRN Reason: Pain, Moderate (4-6) Albuterol (Proventil) 2.5 mg IH Q3HRT PRN PRN Reason: Shortness Of Breath Albuterol/Ipratropium (Duoneb *Not For Prn Use*) 1 ampul IH Q6HRT TRUPTI Amlodipine Besylate (Norvasc) 10 mg PO DAILY TRUPTI Bisacodyl (Dulcolax) 10 mg NC QDAY PRN PRN Reason: Constipation unrelieved by [facility] Budesonide (Pulmicort) 0.5 mg IH Q12HRT TRUPTI Docusate Sodium (Colace) 100 mg PO BID TRUPTI Enoxaparin Sodium (Lovenox) 40 mg SUB-Q QDAY TRUPTI Famotidine (Pepcid) 20 mg PO BID TRUPTI Hydralazine HCl (Apresoline) 10 mg IV Q4H PRN PRN Reason: Hypertension Hydrochlorothiazide (Hctz) 25 mg PO DAILY TRUPTI Magnesium Hydroxide (Milk Of Magnesia) 30 ml PO Q4H PRN PRN Reason: Constipation Methylprednisolone Sodium Succinate (Solu-Medrol) 60 mg IV Q8HR TRUPTI Ondansetron HCl (Zofran) 4 mg IV Q8H PRN PRN Reason: N/V unrelieved by Reglan Exam - Physical Exam Narrative exam: Patient is in moderate respiratory distress. The patient is morbidly obese. Vital signs as documented. Head exam is unremarkable. No scleral icterus . Neck is without jugular venous distension, thyromegaly, or carotid bruits. Lungs wheezing all over the chest. Cardiac exam reveals regular rate and Rhythm. First and second heart sounds normal. No murmurs, rubs or gallops. Abdominal exam reveals normal bowel sounds, no masses, no organomegaly and no aortic enlargement. Extremities are nonedematous and both femoral and pedal pulses are normal. PRODUCT DEVELOPMENT COORDINATOR: Alert and oriented 3. No focal weakness. - Constitutional Vitals: Temp Pulse Resp BP Pulse Ox 98.7 F 105 H 18 186/88 98 02/14/18 03:58 11/17/17 06:49 11/17/17 06:49 11/17/17 06:49 11/17/17 06:49 Results - Labs CBC & Chem 7: 11/17/17 04:55 11/17/17 04:55 Labs: Laboratory Last Values WBC 12.7 K/mm3 (4.5-11.0) H 11/17/17 04:55 RBC 4.47 M/mm3 (3.65-5.03) 11/17/17 04:55 Hgb 12.8 gm/dl (11.8-15.2) 11/17/17 04:55 Hct 39.5 % (35.5-45.6) 11/17/17 04:55 MCV 88 fl (84-94) 11/17/17 04:55 MCH 29 pg (28-32) 11/17/17 04:55 MCHC 32 % (32-34) 11/17/17 04:55 RDW 13.6 % (13.2-15.2) 11/17/17 04:55 Plt Count 301 K/mm3 (140-440) 11/17/17 04:55 Lymph % (Auto) 20.4 % (13.4-35.0) 11/17/17 04:55 [place] % (Auto) 3.1 % (0.0-7.3) 11/17/17 04:55 Eos % (Auto) 1.1 % (0.0-4.3) 11/17/17 04:55 Baso % (Auto) 0.3 % (0.0-1.8) 11/17/17 04:55 Lymph # 2.6 K/mm3 (1.2-5.4) 11/17/17 04:55 [place] # 0.4 K/mm3 (0.0-0.8) 11/17/17 04:55 Eos # 0.1 K/mm3 (0.0-0.4) 11/17/17 04:55 Baso # 0.0 K/mm3 (0.0-0.1) 11/17/17 04:55 Seg Neutrophils % 75.1 % (40.0-70.0) H 11/17/17 04:55 Seg Neutrophils # 9.5 K/mm3 (1.8-7.7) H 11/17/17 04:55 PT 12.9 Sec. (12.2-14.9) 11/17/17 04:55 INR 0.93 (0.87-1.13) 11/17/17 04:55 APTT 28.0 Sec. (24.2-36.6) 11/17/17 04:55 D-Dimer 1212.76 ng/mlDDU (0-234) H 11/17/17 04:55 Sodium 144 mmol/L (137-145) 11/17/17 04:55 Potassium 3.8 mmol/L (3.6-5.0) 11/17/17 04:55 Chloride 102.5 mmol/L (98-107) 11/17/17 04:55 Carbon Dioxide 28 mmol/L (22-30) 11/17/17 04:55 Anion Gap 17 mmol/L 11/17/17 04:55 BUN 13 mg/dL (9-20) 11/17/17 04:55 Creatinine 0.8 mg/dL (0.8-1.5) 11/17/17 04:55 Estimated GFR > 60 ml/min 11/17/17 04:55 BUN/Creatinine Ratio 16 % 11/17/17 04:55 Glucose 129 mg/dL (75-100) H 11/17/17 04:55 Calcium 9.2 mg/dL (8.4-10.2) 11/17/17 04:55 Troponin T < 0.010 ng/mL (0.00-0.029) 11/17/17 04:55 - Imaging and Cardiology Chest x-ray: report reviewed (no acute cardiopulmonary processes identified) CT scan - chest: report reviewed (negative for PE) Assessment and Plan Assessment and plan: Acute respiratory failure Hypertensive urgency Acute asthmatic exacerbation Morbid obesity Medication noncompliance - Patient is on IV Solu-Medrol, nebulizer, breathing treatment, oxygen support - Patient rested on amlodipine, HCTZ and when necessary hydralazine, will monitor blood pressure closely - Patient is counseled about weight loss, medication adherence and cessation of smoking - Consider exercise stress test DVT prophylaxis - On Lovenox Disposition - Admit to medical floor Advance Directives: Yes VTE prophylaxis?: Chemical Plan of care discussed with patient/family: Yes
[2017-11-17 08:55] LABS: Chol/HDL Ratio 3.95 %
[2017-11-17] MEDS: DUONEB *Not for PRN Use IH SCH ×3 (09:26→22:12)
[2017-11-17] MEDS: PULMICORT IH SCH ×2 (09:26→22:12)
[2017-11-17] MEDS ORDERED: HCTZ ONE (09:29)
[2017-11-17] MEDS ORDERED: NORVASC ONE (10:57)
[2017-11-17] MEDS ORDERED: APRESOLINE ONE (10:57)
[2017-11-17] MEDS ORDERED: LOVENOX SUB-Q ONE (10:59)
[2017-11-17] MEDS ORDERED: PEPCID ONE (10:59)
[2017-11-17] MEDS ORDERED: COLACE ONE (10:59)
[2017-11-17] MEDS: HCTZ PO SCH (11:10)
[2017-11-17] MEDS: COLACE PO SCH (11:10)
[2017-11-17] MEDS: LOVENOX SUB-Q SCH (11:10)
[2017-11-17] MEDS: NORVASC PO SCH (11:13)
[2017-11-17] MEDS: PEPCID PO SCH (11:16)
[2017-11-17] MEDS ORDERED: CARDENE 50 MG in NACL 0.9% 250ML 230 ML IV SCH (14:00)
[2017-11-17] MEDS ORDERED: DUONEB *Not for PRN Use IH ONE (14:03)
[2017-11-18] MEDS: PEPCID PO SCH ×2 (00:12→14:36)
[2017-11-18] MEDS: COLACE PO SCH ×2 (00:12→14:34)
[2017-11-18] MEDS: DUONEB *Not for PRN Use IH SCH ×5 (02:43→21:21)
[2017-11-18] MEDS ORDERED: Fluarix Quad 2017-2018(36 MOS+ IM ONE ×2 (02:52→12:00)
[2017-11-18] MEDS ORDERED: PNEUMOVAX 23 IM ONE ×2 (02:52→12:00)
[2017-11-18 05:30] LABS: Hematocrit 41.9 % (35.5-45.6); Hemoglobin 13.6 gm/dl (11.8-15.2); Mean Corpuscular HGB Conc 33 % (32-34); Mean Corpuscular Hemoglobin 28 pg (28-32); Mean Corpuscular Volume 87 fl (84-94); Platelet Count 343 K/mm3 (140-440); Red Blood Count 4.83 M/mm3 (3.65-5.03); Red Cell Distribution Width 14.1 % (13.2-15.2)
[2017-11-18 05:45] LABS: BUN/Creatinine Ratio 20; Blood Urea Nitrogen 16 mg/dL (9-20); Calcium 9.8 mg/dL (8.4-10.2); Hemolysis Index 7
[2017-11-18 08:20] LABS: Band Neutrophils # (Manual) 0.3 K/mm3; Basophils % (Manual) 0 % (0.0-1.8); Eosinophils % (Manual) 0 % (0.0-4.3); RBC Morphology Normal; Total Cells Counted 100
[2017-11-18] MEDS ORDERED: LEXISCAN IV ONE ×2 (11:06→11:07)
[2017-11-18] MEDS: PULMICORT IH SCH ×2 (14:19→21:21)
[2017-11-18] MEDS: LOVENOX SUB-Q SCH (14:35)
[2017-11-18] MEDS: NORVASC PO SCH (14:35)
[2017-11-18] MEDS: HCTZ PO SCH (14:35)
--- NOTE | 2017-11-18 18:08 | Progress Note ---
Assessment and Plan Assessment and plan: Acute respiratory failure Hypertensive urgency Acute asthmatic exacerbation Morbid obesity Medication noncompliance - Patient is on IV Solu-Medrol, nebulizer, breathing treatment, oxygen support - Patient rested on amlodipine, HCTZ, blood pressure is uncontrolled and added hydralazine and atenolol - Patient is counseled about weight loss, medication adherence and cessation of smoking -Stress test was done and result is pending DVT prophylaxis - On Lovenox Disposition -Downgraded to telemetry. Blood pressure is controlled History Interval history: Patient was seen and evaluated this morning, shortness of breath is getting better. Blood pressure is uncontrolled. Hospitalist Physical - Physical exam Narrative exam: Patient is in moderate respiratory distress. The patient is morbidly obese. Vital signs as documented. Head exam is unremarkable. No scleral icterus . Neck is without jugular venous distension, thyromegaly, or carotid bruits. Lungs wheezing all over the chest. Cardiac exam reveals regular rate and Rhythm. First and second heart sounds normal. No murmurs, rubs or gallops. Abdominal exam reveals normal bowel sounds, no masses, no organomegaly and no aortic enlargement. Extremities are nonedematous and both femoral and pedal pulses are normal. SERVICE ESTABLISHMENT ATTENDANT: Alert and oriented 3. No focal weakness. - Constitutional Vitals: Temp Pulse Resp BP Pulse Ox 98.8 F 101 H 26 H 182/105 97 11/18/17 04:32 11/18/17 15:00 11/18/17 15:00 11/18/17 15:15 11/18/17 15:15 Results - Labs CBC & Chem 7: 11/18/17 05:07 11/18/17 05:07 Labs: Laboratory Last Values WBC 16.9 K/mm3 (4.5-11.0) H 11/18/17 05:07 RBC 4.83 M/mm3 (3.65-5.03) 11/18/17 05:07 Hgb 13.6 gm/dl (11.8-15.2) 11/18/17 05:07 Hct 41.9 % (35.5-45.6) 11/18/17 05:07 MCV 87 fl (84-94) 11/18/17 05:07 MCH 28 pg (28-32) 11/18/17 05:07 MCHC 33 % (32-34) 11/18/17 05:07 RDW 14.1 % (13.2-15.2) 11/18/17 05:07 Plt Count 343 K/mm3 (140-440) 11/18/17 05:07 Lymph % (Auto) 20.4 % (13.4-35.0) 11/17/17 04:55 [place] % (Auto) 3.1 % (0.0-7.3) 11/17/17 04:55 Eos % (Auto) 1.1 % (0.0-4.3) 11/17/17 04:55 Baso % (Auto) 0.3 % (0.0-1.8) 11/17/17 04:55 Lymph # 2.6 K/mm3 (1.2-5.4) 11/17/17 04:55 [place] # 0.4 K/mm3 (0.0-0.8) 11/17/17 04:55 Eos # 0.1 K/mm3 (0.0-0.4) 11/17/17 04:55 Baso # 0.0 K/mm3 (0.0-0.1) 11/17/17 04:55 Add Manual Diff Complete 11/18/17 05:07 Total Counted 100 11/18/17 05:07 Seg Neutrophils % Applications Systems Analyst 11/18/17 05:07 Seg Neuts % (Manual) 94.0 % (40.0-70.0) H 11/18/17 05:07 Band Neutrophils % 2.0 % 11/18/17 05:07 Lymphocytes % (Manual) 3.0 % (13.4-35.0) L 11/18/17 05:07 Reactive Lymphs % (Man) 0 % 11/18/17 05:07 Monocytes % (Manual) 1.0 % (0.0-7.3) 11/18/17 05:07 Eosinophils % (Manual) 0 % (0.0-4.3) 11/18/17 05:07 Basophils % (Manual) 0 % (0.0-1.8) 11/18/17 05:07 Metamyelocytes % 0 % 11/18/17 05:07 Myelocytes % 0 % 11/18/17 05:07 Promyelocytes % 0 % 11/18/17 05:07 Blast Cells % 0 % 11/18/17 05:07 Nucleated RBC % Not Reportable 11/18/17 05:07 Seg Neutrophils # 9.5 K/mm3 (1.8-7.7) H 11/17/17 04:55 Seg Neutrophils # Man 15.9 K/mm3 (1.8-7.7) H 11/18/17 05:07 Band Neutrophils # 0.3 K/mm3 11/18/17 05:07 Lymphocytes # (Manual) 0.5 K/mm3 (1.2-5.4) L 11/18/17 05:07 Abs React Lymphs (Man) 0.0 K/mm3 11/18/17 05:07 Monocytes # (Manual) 0.2 K/mm3 (0.0-0.8) 11/18/17 05:07 Eosinophils # (Manual) 0.0 K/mm3 (0.0-0.4) 11/18/17 05:07 Basophils # (Manual) 0.0 K/mm3 (0.0-0.1) 11/18/17 05:07 Metamyelocytes # 0.0 K/mm3 11/18/17 05:07 Myelocytes # 0.0 K/mm3 11/18/17 05:07 Promyelocytes # 0.0 K/mm3 11/18/17 05:07 Blast Cells # 0.0 K/mm3 11/18/17 05:07 WBC Morphology Not Reportable 11/18/17 05:07 Hypersegmented Neuts Not Reportable 11/18/17 05:07 Hyposegmented Neuts Not Reportable 11/18/17 05:07 Hypogranular Neuts Not Reportable 11/18/17 05:07 Smudge Cells Not Reportable 11/18/17 05:07 Toxic Granulation Not Reportable 11/18/17 05:07 Toxic Vacuolation Not Reportable 11/18/17 05:07 Dohle Bodies Not Reportable 11/18/17 05:07 Pelger-Huet Anomaly Not Reportable 11/18/17 05:07 Daniela Rods Not Reportable 11/18/17 05:07 Platelet Estimate Not Reportable 11/18/17 05:07 Clumped Platelets Not Reportable 11/18/17 05:07 Plt Clumps, EDTA Not Reportable 11/18/17 05:07 Large Platelets Not Reportable 11/18/17 05:07 Giant Platelets Not Reportable 11/18/17 05:07 Platelet Satelliting Not Reportable 11/18/17 05:07 Plt Morphology Comment Not Reportable 11/18/17 05:07 RBC Morphology Normal 11/18/17 05:07 Dimorphic RBCs Not Reportable 11/18/17 05:07 Polychromasia Not Reportable 11/18/17 05:07 Hypochromasia Not Reportable 11/18/17 05:07 Poikilocytosis Not Reportable 11/18/17 05:07 Anisocytosis Not Reportable 11/18/17 05:07 Microcytosis Not Reportable 11/18/17 05:07 Macrocytosis Not Reportable 11/18/17 05:07 Spherocytes Not Reportable 11/18/17 05:07 Pappenheimer Bodies Not Reportable 11/18/17 05:07 Sickle Cells Not Reportable 11/18/17 05:07 Target Cells Not Reportable 11/18/17 05:07 Tear Drop Cells Not Reportable 11/18/17 05:07 Ovalocytes Not Reportable 11/18/17 05:07 Helmet Cells Not Reportable 11/18/17 05:07 [place] Bodies Not Reportable 11/18/17 05:07 [place] Rings Not Reportable 11/18/17 05:07 [place] Cells Not Reportable 11/18/17 05:07 Bite Cells Not Reportable 11/18/17 05:07 Crenated Cell Not Reportable 11/18/17 05:07 Elliptocytes Not Reportable 11/18/17 05:07 Acanthocytes (Spur) Not Reportable 11/18/17 05:07 Rouleaux Not Reportable 11/18/17 05:07 Hemoglobin C Crystals Not Reportable 11/18/17 05:07 Schistocytes Not Reportable 11/18/17 05:07 Malaria parasites Not Reportable 11/18/17 05:07 [place] Bodies Not Reportable 11/18/17 05:07 Hem Pathologist Commnt No 11/18/17 05:07 PT 12.9 Sec. (12.2-14.9) 11/17/17 04:55 INR 0.93 (0.87-1.13) 11/17/17 04:55 APTT 28.0 Sec. (24.2-36.6) 11/17/17 04:55 D-Dimer 1212.76 ng/mlDDU (0-234) H 11/17/17 04:55 Sodium 138 mmol/L (137-145) 11/18/17 05:07 Potassium 3.7 mmol/L (3.6-5.0) 11/18/17 05:07 Chloride 96.6 mmol/L (98-107) L 11/18/17 05:07 Carbon Dioxide 23 mmol/L (22-30) 11/18/17 05:07 Anion Gap 22 mmol/L 11/18/17 05:07 BUN 16 mg/dL (9-20) 11/18/17 05:07 Creatinine 0.8 mg/dL (0.8-1.5) 11/18/17 05:07 Estimated GFR > 60 ml/min 11/18/17 05:07 BUN/Creatinine Ratio 20 % 11/18/17 05:07 Glucose 202 mg/dL (75-100) H 11/18/17 05:07 Hemoglobin A1c 5.0 % (4-6) 11/17/17 04:55 Calcium 9.8 mg/dL (8.4-10.2) 11/18/17 05:07 Troponin T < 0.010 ng/mL (0.00-0.029) 11/17/17 04:55 Triglycerides 137 mg/dL (2-149) 11/17/17 04:55 Cholesterol 186 mg/dL (50-199) 11/17/17 04:55 LDL Cholesterol Direct 112 mg/dL (50-130) 11/17/17 04:55 HDL Cholesterol 47 mg/dL (40-59) 11/17/17 04:55 Cholesterol/HDL Ratio 3.95 % 11/17/17 04:55
[2017-11-18] MEDS: APRESOLINE PO SCH (20:30)
[2017-11-18] MEDS: TENORMIN PO SCH (20:30)
[2017-11-19] MEDS: CATAPRES PO SCH ×2 (00:07→09:59)
[2017-11-19] MEDS: COLACE PO SCH ×2 (00:07→09:59)
[2017-11-19] MEDS: PEPCID PO SCH ×2 (00:07→10:02)
--- NOTE | 2017-11-19 00:59 | Treadmill Report ---
NUCLEAR CARDIAC IMAGING INDICATION FOR PROCEDURE: Chest pain. Informed consent was obtained. Vasodilator stress was achieved with the intravenous administration of 0.4 mg of IV Lexiscan per protocol. Rest and stress nuclear cardiac imaging studies were performed per protocol following the intravenous administration of 10 mCi and 28 mCi of technetium 99m Myoview per protocol. Gated SPECT imaging demonstrates a left ventricular ejection fraction of 51% with normal wall motion. The study was reviewed, both on the [employer] protocol as well as the [employer] Corridor system. The left ventricular ejection fraction on the 4D system was 70% with normal wall motion. Myocardial perfusion imaging demonstrates no significant cavity change between stress and rest. On the 4D processing protocol, there are small mild persistent anterior and inferior perfusion abnormalities which in the absence of wall motion disturbances are likely artifactual in origin. No significant reversible perfusion defects are seen. On the [employer] system, a small mild inferior wall perfusion defect was noted, but primarily only in the horizontal short axis projection. Although this defect appeared to be mildly reversible, the study was technically suboptimal and being seen essentially in only 1 projection, this defect is likely artifactual in origin. A significant degree of ischemia was not seen. Nuclear cardiac imaging demonstrates grossly normal post-stress left ventricular systolic function. When processed on the 4D Corridor system, no significant evidence for myocardial ischemia or necrosis is noted. On the [employer], a small degree of inferior ischemia cannot be definitely excluded, although this defect may be artifactual in origin. A significant degree of ischemia is not seen. [facility]# [id number] AMAURY/PARIS [id number]
[2017-11-19] MEDS: DUONEB *Not for PRN Use IH SCH ×3 (02:01→13:13)
[2017-11-19] MEDS: PULMICORT IH SCH (07:20)
[2017-11-19] MEDS: APRESOLINE PO SCH ×2 (09:00→16:34)
[2017-11-19] MEDS: LOVENOX SUB-Q SCH (10:00)
[2017-11-19] MEDS: HCTZ PO SCH (10:00)
[2017-11-19] MEDS: NORVASC PO SCH (10:01)
[2017-11-19] MEDS: TENORMIN PO SCH (10:02)
--- NOTE | 2017-11-19 10:56 | Discharge Summary ---
Providers - Providers Date of Admission: 11/17/17 07:43 Date of discharge: 11/19/17 Attending physician: MUKUND SCHRADER MD 11/18/17 00:06 Consult to Physician [CONS] Routine Consulting Provider: LUCRETIA ROTH Reason For Exam: CCU Place consult to:: Dr. Roth Notified:: Answering Service Phone number called:: [phone] Was contact made?: Yes If yes, spoke with:: Francisco J Time called:: 00:10 Primary care physician: ROBIN MAHONEY Hospitalization Reason for admission: asthma exacerbation, hypertensive urgency Condition: Stable Pertinent studies: Stress test no acute ischemia seen Hospital course: 42-year-old -[place] woman with past medical history significant for morbid obesity, hypertension, asthma, medication noncompliance presented to the emergency department complaining of shortness of breath that started yesterday. The patient has been taking his inhaler without improvement then he presented to the emergency department. Patient had cough since yesterday but denied fever , chills, runny nose, headache or joint pain. Patient denied chest pain, palpitation, leg swelling. Patient was on lisinopril and discontinued lisinopril a month and half ago after he developed lip swelling. He didn't have a primary care physician. Patient was admitted for asthma exacerbation and was treated accordingly Disposition: DC-01 TO HOME OR SELFCARE Time spent for discharge: 31 minutes - Discharge Diagnoses (1) Asthma exacerbation Status: Acute Qualifiers: Asthma severity: unspecified severity (2) Hypertensive urgency Status: Acute (3) Morbid obesity Status: Acute (4) Noncompliance with medication regimen Status: Acute Core Measure Documentation - Palliative Care Palliative Care/ Comfort Measures: Not Applicable - Core Measures Any of the following diagnoses?: none Exam - Physical Exam Narrative exam: Patient is in moderate respiratory distress. The patient is morbidly obese. Vital signs as documented. Head exam is unremarkable. No scleral icterus . Neck is without jugular venous distension, thyromegaly, or carotid bruits. Lungs wheezing all over the chest. Cardiac exam reveals regular rate and Rhythm. First and second heart sounds normal. No murmurs, rubs or gallops. Abdominal exam reveals normal bowel sounds, no masses, no organomegaly and no aortic enlargement. Extremities are nonedematous and both femoral and pedal pulses are normal. WIG STYLIST: Alert and oriented 3. No focal weakness. - Constitutional Vitals: Temp Pulse Resp BP Pulse Ox 98.9 F 68 20 154/72 95 11/19/17 08:59 11/19/17 10:02 11/19/17 08:59 11/19/17 10:02 11/19/17 08:59 Plan Activity: no restrictions Weight Bearing Status: Full Weight Bearing Diet: low fat, low cholesterol, low salt Follow up with: ROBIN MAHONEY MD [Primary Care Provider] - 7 Days Forms: Work/School Release Form Prescriptions: ALBUTEROL NEB's [Proventil 0.083% NEBS] 2.5 mg IH Q3HRT PRN #90 nebu PRN Reason: Shortness Of Breath amLODIPine [Norvasc] 10 mg PO DAILY #30 tablet Atenolol [Tenormin] 50 mg PO QDAY #60 tablet Budesonide [Pulmicort Respules] 0.5 mg IH Q12HRT #60 nebu cloNIDine [Catapres] 0.2 mg PO Q12HR #60 tablet hydrALAZINE [Apresoline TAB] 100 mg PO TID #90 tab Hydrochlorothiazide [HCTZ] 25 mg PO DAILY #30 tablet Prednisone [predniSONE 10 mg (6-Day Pack, 21 Tabs)] 10 mg PO .TAPER #1 tab.ds.pk
[2017-11-19 12:50] VITALS: BP 139/71
== END 2017-11-19 16:39 | disposition home or self-care (01) | DRG 189 ==
LOC: ED 03:52 → 3A 07:43 → CC1 13:43 → 4A 11-19 00:14
PROVIDERS: ADMIT Internal Medicine; ATTEND Internal Medicine
PROC: 3E0234Z Introduction of Serum, Toxoid and Vaccine into Muscle, Percutaneous Approach (ICD-10-PCS; principal; 2017-11-18)
DX: J96.00 Acute respiratory failure, unspecified whether with hypoxia or hypercapnia (principal); J45.901 Unspecified asthma with (acute) exacerbation; I16.0 Hypertensive urgency; E66.01 Morbid (severe) obesity due to excess calories; I10 Essential (primary) hypertension; F17.210 Nicotine dependence, cigarettes, uncomplicated; Z68.43 Body mass index [BMI] 50.0-59.9, adult; Z23 Encounter for immunization; Z91.14 Patient's other noncompliance with medication regimen; Z88.8 Allergy status to other drugs, medicaments and biological substances
CPT/HCPCS: 36415; 71045; 71275; 78452; 80048; 80061; 83036; 84484; 85007; 85025; 85379; 85610; 85730; 90686; 90732; 93005; 93010; 93017; 94640; A9502; J0360; J1650; J2785; J2930; J3475; J7050; Q9967

== ENCOUNTER 2019-04-28 08:47 | Emergency (ER) | payer OTHER ==
[2019-04-28] MEDS ORDERED: ASPIRIN PO ONE (08:57)
[2019-04-28 09:15] LABS: Basophils # (Auto) 0.1 K/mm3 (0.0-0.1); Basophils % (Auto) 0.6 % (0.0-1.8); Eosinophils # (Auto) 0.3 K/mm3 (0.0-0.4); Eosinophils % (Auto) 2.6 % (0.0-4.3); Hematocrit 40.2 % (35.5-45.6); Hemoglobin 13.6 gm/dl (11.8-15.2); Lymphocytes % (Auto) 25.9 % (13.4-35.0); Mean Corpuscular HGB Conc 34 % (32-34); Mean Corpuscular Volume 91 fl (84-94); Monocytes # (Auto) 0.6 K/mm3 (0.0-0.8); Monocytes % (Auto) 4.9 % (0.0-7.3); Platelet Count 392 K/mm3 (140-440); Red Blood Count 4.44 M/mm3 (3.65-5.03); Red Cell Distribution Width 14.9 % (13.2-15.2)
[2019-04-28 09:29] LABS: BUN/Creatinine Ratio 18; Blood Urea Nitrogen 14 mg/dL (9-20); Calcium 9.8 mg/dL (8.4-10.2); Hemolysis Index 9
--- NOTE | 2019-04-28 09:48 | Emergency Department Report ---
ED Chest Pain HPI - General Chief Complaint: Chest Pain Stated Complaint: SOB/CHEST PAIN Time Seen by Provider: 04/28/19 09:29 Source: patient Mode of arrival: Ambulatory Limitations: No Limitations - History of Present Illness Initial Comments: 43-year-old male with history of hypertension and vertigo presents to ED with complaint of chest pain and shortness of breath. 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 Patient reports associated nausea and vomiting, sweating. Patient reports he felt dizzy during this episode as well. Patient reports he takes on BP medication (unsure of the name) and states that he ran out of it one week ago. Denies any lower leg pain or swelling, reports swelling and pain in bilateral knees. MD Complaint: chest pain -: This morning Onset: during exertion Pain Location: left chest Pain Radiation: none Severity: moderate Quality: pressure Consistency: now resolved Improves With: nothing Worsens With: exertion re: nausea, vomting, diaphoresis, dyspnea - Related Data Previous Rx's Medication Instructions Recorded Last Taken Type Pantoprazole [Protonix TAB] 20 mg PO QDAY #30 tablet. 04/28/19 Unknown Rx Allergies Allergy/AdvReac Type Severity Reaction Status Date / Time lisinopril Allergy Swelling Verified 11/17/17 04:26 Heart Score - HEART Score History: Moderately suspicious EKG: Non-specific Age: < 45 Risk factors: 1-2 risk factors Troponin: < normal limit HEART Score: 3 - Critical Actions Critical Actions: 0-3 pts:0.9-1.7%risk of adverse cardiac event.Candidate for discharge ED Review of Systems ROS: Stated complaint: SOB/CHEST PAIN Other details as noted in HPI Comment: All other systems reviewed and negative Constitutional: denies: chills, fever Respiratory: shortness of breath Cardiovascular: chest pain Gastrointestinal: nausea, vomiting Neurological: vertigo ED Past Medical Hx - Past Medical History Previous Medical History?: Yes Hx Hypertension: Yes Hx Asthma: Yes Additional medical history: OBESITY, VERTIGO - Surgical History Past Surgical History?: Yes Additional Surgical History: cyst removed on left leg - Social History Smoking Status: Current Every Day Smoker Substance Use Type: None - Medications Home Medications: Home Medications Medication Instructions Recorded Confirmed Last Taken Type Pantoprazole [Protonix TAB] 20 mg PO QDAY #30 tablet. 04/28/19 Unknown Rx ED Physical Exam - General Limitations: No Limitations General appearance: alert, in no apparent distress, obese - Head Head exam: Present: atraumatic, normocephalic - Eye Eye exam: Present: normal appearance, PERRL, EOMI - ENT ENT exam: Present: mucous membranes moist - Neck Neck exam: Present: normal inspection - Respiratory Respiratory exam: Present: normal lung sounds bilaterally. Absent: respiratory distress - Cardiovascular Cardiovascular Exam: Present: regular rate, normal rhythm - GI/Abdominal GI/Abdominal exam: Present: soft. Absent: distended, tenderness - Extremities Exam Extremities exam: Absent: pedal edema, calf tenderness - Neurological Exam Neurological exam: Present: alert, oriented X3, CN II-XII intact. Absent: motor sensory deficit - Psychiatric Psychiatric exam: Present: normal affect, normal mood - Skin Skin exam: Present: warm, dry, intact, normal color ED Course Vital Signs 04/28/19 04/28/19 04/28/19 08:55 09:30 10:00 Temperature 98.3 F Pulse Rate 76 79 74 Respiratory 18 16 20 Rate Blood Pressure 184/123 191/108 175/91 O2 Sat by Pulse 100 90 94 Oximetry 04/28/19 04/28/19 04/28/19 10:30 11:00 11:26 Temperature Pulse Rate 73 70 81 Respiratory 19 16 Rate Blood Pressure 186/78 173/91 173/91 O2 Sat by Pulse 93 95 Oximetry 04/28/19 04/28/19 11:31 12:00 Temperature Pulse Rate 67 62 Respiratory 11 L 11 L Rate Blood Pressure 156/73 158/90 O2 Sat by Pulse 94 98 Oximetry ED Medical Decision Making - Lab Data Result diagrams: 04/28/19 09:00 04/28/19 09:00 - EKG Data -: EKG Interpreted by Md EKG shows normal: sinus rhythm, axis, intervals, QRS complexes Rate: normal - EKG Data When compared to previous EKG there are: no significant change (compared to 11/17/17) Interpretation: LVH, other (prolonged RI, lateral T wave inversions present) - Radiology Data Radiology results: report reviewed, image reviewed - Medical Decision Making History of malrotation hypertension presents with chest pain, emesis, diaphoresis, shortness of breath, and dizziness. Pt hypertensive, reports he has been out of his BP meds x 1 week. EKG shows LVH, no ST changes, similar to previous EKG from 1 yr ago. Troponin normal. CTA Chest done due to elevated D- dimer and it was negative for PE. Labetalol given for blood pressure. Pt is chest pain free at this time. Will admit to hospitalist for further evaluation. - Differential Diagnosis ACS, PE, hypertensive emergency Critical care attestation.: If time is entered above; I have spent that time in minutes in the direct care of this critically ill patient, excluding procedure time. ED Disposition Clinical Impression: Acute chest pain, Hypertensive emergency Disposition: DC-09 OP ADMIT IP TO THIS HOSP Is pt being admited?: Yes Condition: Stable Instructions: Chest Pain (ED), Hypertension (ED) Prescriptions: Pantoprazole [Protonix TAB] 20 mg PO QDAY #30 tablet. Referrals: DELANO GONZALEZTERRA ALTA MD JENNIFER [Primary Care Provider] - 3-5 Days Forms: Work/School Release Form(ED) Time of Disposition: 14:18
--- NOTE | 2019-04-28 09:58 | XRay Report ---
CHEST 1 VIEW INDICATION / CLINICAL INFORMATION: Chest Pain. COMPARISON: None available. FINDINGS: SUPPORT DEVICES: None. HEART / MEDIASTINUM: No significant abnormality. LUNGS / PLEURA: No significant pulmonary or pleural abnormality. No pneumothorax. ADDITIONAL FINDINGS: No significant additional findings. IMPRESSION: 1. No acute findings. Signer Name: Berto Taylor MD FACR Signed: 04/28/2019 9:54 AM Workstation Name: [id number]
[2019-04-28] MEDS ORDERED: NORMODYNE IV ONE (10:44)
[2019-04-28] MEDS ORDERED: ASPIRIN ONE (11:20)
[2019-04-28 11:58] LABS: INR 1.02 (0.87-1.13); Partial Thromboplastin Time 26.4 Sec. (24.2-36.6)
[2019-04-28 12:22] VITALS: BP 158/90
--- NOTE | 2019-04-28 13:37 | Cat Scan Report ---
CTA CHEST WITH IV CONTRAST INDICATION / CLINICAL INFORMATION: chest pain, SOB. TECHNIQUE: Axial CT images were obtained through the chest after injection of IV contrast. 3 plane MIP and/or 3D reconstructions were produced. All CT scans at this location are performed using CT dose reduction f or ALARA by means of automated exposure control. COMPARISON: CT dated 11/17/17 FINDINGS: PULMONARY ARTERIES: No pulmonary emboli. THORACIC AORTA: No significant abnormality. HEART: Heart is mildly enlarged. No pericardial effusion. CORONARY ARTERIES: No significant calcification. PLEURA: No pleural effusion. No pneumothorax. LYMPH NODES: No significant adenopathy. LUNGS: No acute air space or interstitial disease. ADDITIONAL FINDINGS: None. UPPER ABDOMEN: No acute findings. SKELETAL STRUCTURES: No significant osseous abnormality. IMPRESSION: 1. No CT evidence for pulmonary embolism. 2. No acute findings. No significant change. Signer Name: Francisco Pratt MD Signed: 04/28/2019 1:33 PM Workstation Name: [id number]
--- NOTE | 2019-04-28 15:44 | Event Note ---
Date: 04/28/19 43 YO Male presents to ED for evaluation of Atypical Chest Pain secondary to GERD. Pt also found to have Nicotine Dependence, Morbid Obesity. Pt treated IAW chest pain protocol. Serial cardiac enzymes, ekg, and telemetry were unremarkable for ischemia. D dimer was elevated but CTA chest was negative for PE. Pt counseled regarding smoking cessation (+15min), and well as dietary education for Morbid obesity. Pt medically optimized and back to usual state of health. Pt discharged home and instructed to f/u PCP 3-5 days, Cardiology 3-5 days, and to maintain daily weight log, and conduct increased physical activity at discharge. ED Physical Exam - General Limitations: No Limitations General appearance: alert, in no apparent distress, obese - Head Head exam: Present: atraumatic, normocephalic - Eye Eye exam: Present: normal appearance, PERRL, EOMI - ENT ENT exam: Present: mucous membranes moist - Neck Neck exam: Present: normal inspection - Respiratory Respiratory exam: Present: normal lung sounds bilaterally. Absent: respiratory distress - Cardiovascular Cardiovascular Exam: Present: regular rate, normal rhythm - GI/Abdominal GI/Abdominal exam: Present: soft. Absent: distended, tenderness - Extremities Exam Extremities exam: Absent: pedal edema, calf tenderness - Neurological Exam Neurological exam: Present: alert, oriented X3, CN II-XII intact. Absent: motor sensory deficit - Psychiatric Psychiatric exam: Present: normal affect, normal mood - Skin Skin exam: Present: warm, dry, intact, normal color
== END 2019-04-28 17:14 | disposition admitted as inpatient to this hospital (09) ==
LOC: ED 08:47
DX: I16.1 Hypertensive emergency (principal); R07.89 Other chest pain; J45.909 Unspecified asthma, uncomplicated; F17.200 Nicotine dependence, unspecified, uncomplicated; Z88.6 Allergy status to analgesic agent
CPT/HCPCS: 36415; 71045; 71275; 80048; 83880; 84484; 85025; 85379; 85610; 85730; 93005; 93010; 96374; 99285; Q9967

== ENCOUNTER 2019-05-04 02:05 | Inpatient (IN) | payer SELFPAY ==
[2019-05-04 02:44] LABS: Basophils % (Auto) 0.3 % (0.0-1.8); Eosinophils # (Auto) 0.5 K/mm3 (0.0-0.4); Eosinophils % (Auto) 3.5 % (0.0-4.3); Hematocrit 38.4 % (35.5-45.6); Hemoglobin 12.7 gm/dl (11.8-15.2); Lymphocytes # (Auto) 3.4 K/mm3 (1.2-5.4); Lymphocytes % (Auto) 25.9 % (13.4-35.0); Mean Corpuscular HGB Conc 33 % (32-34); Mean Corpuscular Volume 90 fl (84-94); Monocytes # (Auto) 0.5 K/mm3 (0.0-0.8); Monocytes % (Auto) 3.7 % (0.0-7.3); Platelet Count 346 K/mm3 (140-440); Red Blood Count 4.27 M/mm3 (3.65-5.03); Red Cell Distribution Width 14.5 % (13.2-15.2)
[2019-05-04 03:00] LABS: BUN/Creatinine Ratio 15; Blood Urea Nitrogen 12 mg/dL (9-20); Calcium 9.2 mg/dL (8.4-10.2); Hemolysis Index 3
--- NOTE | 2019-05-04 03:14 | XRay Report ---
CHEST 2 VIEWS INDICATION / CLINICAL INFORMATION: SOB. COMPARISON: 03/29/2019 FINDINGS: SUPPORT DEVICES: None. HEART / MEDIASTINUM: No significant abnormality. LUNGS / PLEURA: No significant pulmonary or pleural abnormality. No pneumothorax. ADDITIONAL FINDINGS: No significant additional findings. IMPRESSION: No significant abnormality or change from 03/29/2019 Signer Name: Berto Taylor MD FACR Signed: 05/04/2019 3:09 AM Workstation Name: [email or web address]
[2019-05-04] MEDS ORDERED: BABY ASPIRIN PO ONE (03:45)
[2019-05-04] MEDS ORDERED: CATAPRES PO ONE ×2 (03:45→04:41)
--- NOTE | 2019-05-04 04:32 | Emergency Department Report ---
ED Chest Pain HPI - General Chief Complaint: Dyspnea/Respdistress Stated Complaint: DIZZY SOB W/WEAKNESS Time Seen by Provider: 05/04/19 03:44 Source: patient Mode of arrival: Ambulatory Limitations: No Limitations - History of Present Illness Initial Comments: Patient reports that he smokes approximately 1/2 pack cigarettes daily. Reports that his father underwent heart surgery in his 40s. Denies hx PE/DVT. 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 Reports he was evaluated in the ER for same symtpoms recently. Reports that he does not have a PCP. MD Complaint: chest pain -: Gradual, hour(s) Onset: during rest, during exertion Pain Location: substernal Pain Radiation: none Severity: mild Severity scale (0 -10): 2 Quality: aching Consistency: intermittent Improves With: nothing Worsens With: nothing re: denies: nausea, vomting, diaphoresis, dyspnea, sense of impending doom Other Symptoms: other (lightheadedness). denies: cough, fever, syncope, rash, acid taste in mouth, leg swelling, palpitations, burping - Related Data Previous Rx's Medication Instructions Recorded Last Taken Type Acetaminophen [Acetaminophen TAB] 2 tab PO Q6H PRN #15 tablet 05/05/19 Unknown Rx Aspirin [Aspirin BABY CHEW TAB] 81 mg PO QDAY #30 tab.chew 05/05/19 Unknown Rx Esomeprazole Magnesium [Nexium 20 mg PO QDAY PRN #7 capsule. 05/05/19 Unknown Rx 24Hr] Meclizine [Antivert] 25 mg PO Q8H PRN #15 tablet 05/05/19 Unknown Rx Hydralazine HCl 50 mg PO TID #90 tablet 05/08/19 Unknown Rx amLODIPine [Norvasc] 10 mg PO DAILY #30 tab 05/08/19 Unknown Rx Allergies Allergy/AdvReac Type Severity Reaction Status Date / Time lisinopril Allergy Swelling Verified 11/17/17 04:26 Heart Score - HEART Score History: Moderately suspicious EKG: Non-specific Age: < 45 Risk factors: 1-2 risk factors Troponin: < normal limit HEART Score: 3 ED Review of Systems ROS: Stated complaint: DIZZY SOB W/WEAKNESS Other details as noted in HPI Other: GENERAL: No weight change, fatigue, weakness, fever, chills, or night sweats SKIN: No changes in skin or hair, no itching, no rashes, no jaundice HEAD: No trauma, headache, or visual changes EYES: No blurriness, tearing, itching, acute visual loss, conjunctival discoloration, or scleral icterus EARS: No hearing loss, tinnitus, vertigo, or earache NOSE: No rhinorrhea, stuffiness, sneezing, itching, or epistaxis MOUTH: No bleeding gums, hoarseness, sore throat, or swelling CARDIAC: Chest Pain. No new murmur, palpitations, dyspnea on exertion, orthopnea, PND, or edema RESPIRATORY: No shortness of breath, wheeze, cough, sputum production, hemoptysis, pneumonia, asthma, bronchitis, or emphysema GI: No change in appetite, nausea, vomiting, dysphagia, change in bowel frequency, diarrhea, constipation, bleeding, hematemesis, melena, hematochezia, or abdominal pain URINARY: No frequency, urgency, polyuria, dysuria, hematuria, or incontinence MUSCULOSKELETAL: No muscle weakness, joint stiffness, decrease in range of motion, redness, swelling NEUROLOGIC: Lightheadedness. No loss of sensation, numbness, tingling, tremors, weakness, paralysis, seizures HEMATOLOGIC: No anemia, easy bruising, bleeding, petechiae, or purpura ENDOCRINE: No hot or cold intolerance, sweating, polyuria, polydipsia or, po lyphagia no thyroid problems PSYCHIATRIC: No change in mood, no anxiety, no depression ED Past Medical Hx - Past Medical History Previous Medical History?: Yes Hx Hypertension: Yes Hx Asthma: Yes Additional medical history: OBESITY, VERTIGO - Surgical History Past Surgical History?: Yes Additional Surgical History: cyst removed on left leg - Social History Smoking Status: Current Every Day Smoker Substance Use Type: None - Medications Home Medications: Home Medications Medication Instructions Recorded Confirmed Last Taken Type Acetaminophen [Acetaminophen TAB] 2 tab PO Q6H PRN #15 tablet 05/05/19 Unknown Rx Aspirin [Aspirin BABY CHEW TAB] 81 mg PO QDAY #30 tab.chew 05/05/19 Unknown Rx Esomeprazole Magnesium [Nexium 20 mg PO QDAY PRN #7 capsule. 05/05/19 Unknown Rx 24Hr] Meclizine [Antivert] 25 mg PO Q8H PRN #15 tablet 05/05/19 Unknown Rx Hydralazine HCl 50 mg PO TID #90 tablet 05/08/19 Unknown Rx amLODIPine [Norvasc] 10 mg PO DAILY #30 tab 05/08/19 Unknown Rx ED Physical Exam - General Limitations: No Limitations - Other Other exam information: GENERAL: Patient in no acute distress HEAD: Normocephalic, atraumatic EYES: PERRLA, EOM intact, no scleral icterus, no papilledema, no conjunctival hemorrhage, visual cordova and acuity wnl, NOSE: No tenderness, discharge, sinus tenderness MOUTH: No erythema, bleeding, exudate HEART: Regular rate and rhythm, no murmur, S1-S2 are auscultated, pulses are symmetric LUNGS: No wheezing, rales, rhonchi, bilateral breath sounds ABDOMEN: Normal bowel sounds, no tenderness, no rebound, no guarding, no masses, no CVA tenderness MUSCULOSKELETAL: Normal joint range of motion, no redness, no swelling, no tenderness NEUROLOGIC: GCS 15, Alert and Oriented x3, Cranial nerves intact, normal sensation, normal strength, no cerebellar deficit PSYCHIATRIC: No homicidal or suicidal ideation, no anxiety, no depression, no hallucinations SKIN: Skin is warm and dry, no wounds, no rashes ED Course Vital Signs 05/04/19 05/04/19 05/04/19 02:11 02:45 03:00 Temperature 98.5 F 98.3 F Pulse Rate 93 H 89 88 Pulse Rate [ Apical] Pulse Rate [ Left Radial] Pulse Rate [ Right Radial] Respiratory 20 18 22 Rate Blood Pressure 223/108 177/85 Blood Pressure 201/105 [Left] O2 Sat by Pulse 96 99 97 Oximetry 05/04/19 05/04/19 05/04/19 03:31 04:03 04:30 Temperature Pulse Rate 80 86 80 Pulse Rate [ Apical] Pulse Rate [ Left Radial] Pulse Rate [ Right Radial] Respiratory 20 24 Rate Blood Pressure 177/85 159/74 178/95 Blood Pressure [Left] O2 Sat by Pulse 99 96 Oximetry 05/04/19 05/04/19 05/04/19 04:55 05:01 05:31 Temperature Pulse Rate 77 82 77 Pulse Rate [ Apical] Pulse Rate [ Left Radial] Pulse Rate [ Right Radial] Respiratory 18 15 Rate Blood Pressure 191/81 181/98 187/82 Blood Pressure [Left] O2 Sat by Pulse 96 96 Oximetry 05/04/19 05/04/1919 05:48 06:00 06:31 Temperature Pulse Rate 83 77 80 Pulse Rate [ Apical] Pulse Rate [ Left Radial] Pulse Rate [ Right Radial] Respiratory 19 22 Rate Blood Pressure 177/92 166/80 Blood Pressure 174/82 [Left] O2 Sat by Pulse 94 94 Oximetry 05/04/19 05/04/19 05/04/19 07:31 08:00 08:20 Temperature Pulse Rate 76 74 Pulse Rate [ 63 Apical] Pulse Rate [ 63 Left Radial] Pulse Rate [ 63 Right Radial] Respiratory 19 19 18 Rate Blood Pressure 132/80 124/82 Blood Pressure 146/82 [Left] O2 Sat by Pulse 95 95 99 Oximetry 05/04/19 05/04/19 05/04/19 08:21 08:31 08:41 Temperature Pulse Rate 78 80 71 Pulse Rate [ Apical] Pulse Rate [ Left Radial] Pulse Rate [ Right Radial] Respiratory 21 21 16 Rate Blood Pressure 124/82 145/82 145/82 Blood Pressure [Left] O2 Sat by Pulse 98 94 97 Oximetry 05/04/19 05/04/19 09:06 09:11 Temperature Pulse Rate 60 Pulse Rate [ Apical] Pulse Rate [ Left Radial] Pulse Rate [ Right Radial] Respiratory 19 Rate Blood Pressure 148/55 148/55 Blood Pressure [Left] O2 Sat by Pulse 93 94 Oximetry ED Medical Decision Making - Lab Data Result diagrams: 05/05/19 04:35 05/05/19 04:35 Laboratory Results - last 24 hr 05/04/19 05/04/19 05/04/19 02:35 02:35 03:57 WBC 13.3 H RBC 4.27 Hgb 12.7 Hct 38.4 MCV 90 MCH 30 MCHC 33 RDW 14.5 Plt Count 346 Lymph % (Auto) 25.9 Reeves % (Auto) 3.7 Eos % (Auto) 3.5 Baso % (Auto) 0.3 Lymph # 3.4 Reeves # 0.5 Eos # 0.5 H Baso # 0.0 Seg Neutrophils % 66.6 Seg Neutrophils # 8.9 H Sodium 143 Potassium 3.4 L Chloride 101.8 Carbon Dioxide 30 Anion Gap 15 BUN 12 Creatinine 0.8 Estimated GFR > 60 BUN/Creatinine Ratio 15 Glucose 118 H Calcium 9.2 Troponin T < 0.010 NT-Pro-B Natriuret Pep 404.5 - Medical Decision Making At 0608 patient comfortable. Plan admit after repeat trop. Dr. Velasco updated and agrees to follow up troponin and disposition. Critical care attestation.: If time is entered above; I have spent that time in minutes in the direct care of this critically ill patient, excluding procedure time. ED Disposition Clinical Impression: Hypertensive urgency, Chest pain Disposition: OP ADMIT IP TO THIS HOSP Is pt being admited?: Yes Condition: Stable
[2019-05-04] MEDS ORDERED: LOPRESSOR ONE (08:42)
[2019-05-04] MEDS ORDERED: NORVASC ONE (08:43)
[2019-05-04] MEDS ORDERED: K-DUR PO NR (09:00)
[2019-05-04] MEDS: LOPRESSOR PO SCH ×3 (09:03→21:03)
[2019-05-04] MEDS: NORVASC PO SCH ×2 (09:03→10:46)
[2019-05-04] MEDS ORDERED: TYLENOL #3 PO PRN (11:42)
[2019-05-04] MEDS: TYLENOL PO PRN (13:38)
--- NOTE | 2019-05-04 15:24 | History and Physical Report ---
History of Present Illness Date of examination: 05/04/19 Date of admission: 05/04/19 07:18 Chief complaint: Chest pains History of present illness: Patient is a 43 yo man with a history of hypertension off bp medications, asthma, morbid obesity bmi 52, vertigo, tobacco dependency and GERD who presents to [facility] ED with mild achy substernal to left side non-radiating intermittent chest pains that started 2 pm yesterday associated with dizziness without headaches. The dizziness felt like room spinning with lightheadedness. He denies SOB, n/v/abd pains or trauma. He came here to the ED on 04/28/19 with similar compliant except for the dizziness. He was discharged with PPI from ED. He denies muscle weakness or slurred speech. He is being admitted to the hospital because his blood pressure is 223/108 with cp. PMH: as hpi PSH: cyst removed from left leg SH: 1/ ppd tob use, denies etoh and drug abuse FH: Father had heart attack in his 40s and of lung cancer at age 66 ROS: Constitutional: denies: fever ENT: denies: throat or neck pain Respiratory: denies: cough, shortness of breath Cardiovascular: +chest pain Endocrine: denies unexplained weight loss or gain Gastrointestinal: denies: abdominal pain, nausea Genitourinary: denies: dysuria Rectal: denies no incontinence, no bleeding, no itching, no discharge Musculoskeletal: denies swelling, myaglia, muscle weakness Skin: denies: rash Neurological: denies: headache + dizziness with room spinning similar to Vertigo Hematological/Lymphatic: denies: easy bleeding or easy bruising Allergic/Immunologic: no urticaria, no allergic rhinitis, no anaphylaxis Psych: denies sadness or hopelessness, SI/HI Medications and Allergies Allergies Allergy/AdvReac Type Severity Reaction Status Date / Time lisinopril Allergy Swelling Verified 11/17/17 04:26 Home Medications Medication Instructions Recorded Confirmed Last Taken Type No Known Home Medications [No 05/04/19 05/04/19 Unknown History Reported Home Medications] Active Meds: Active Medications Acetaminophen (Tylenol) 650 mg PO Q6H PRN PRN Reason: Pain, Mild (1-3) Last Admin: 05/04/19 13:38 Dose: 650 mg Documented by: Amlodipine Besylate (Norvasc) 5 mg PO QDAY [facility] Last Admin: 05/04/19 10:46 Dose: Not Given Documented by: Hydralazine HCl (Apresoline) 10 mg IV Q4HR PRN PRN Reason: Blood Pressure Metoprolol Tartrate (Lopressor) 25 mg PO BID [facility] Last Admin: 05/04/19 10:45 Dose: Not Given Documented by: Exam - Physical Exam Narrative exam: Gen: WDWN, NAD, Awake, Alert, Orientated x 3, bmi 52 HEENT: NCAT, EOMI, PERRL, OP Clear Neck: supple, no adenopathy, no thyromegaly, no JVD CVS/Heart: RRR, normal S1S2, pulses present bilaterally Chest/Lungs: CTA B, Symmetrical chest expansion, good air entry bilaterally GI/Abdomen: soft, NTND, good bowel sounds, no guarding or rebound /Bladder: no suprapubic tenderness, no CVA or paraspinal tenderness Extermity/Skin: no c/c/e, no obvious rash MSK: FROM x 4 Neuro: CN 2-12 grossly intact, no new focal deficits Psych: calm - Constitutional Vitals: Temp Pulse Resp BP Pulse Ox 98.2 F 63 18 132/55 100 05/04/19 10:55 05/04/19 14:51 05/04/19 12:23 05/04/19 12:23 05/04/19 12:23 Results - Labs CBC & Chem 7: 05/04/19 02:35 05/04/19 02:35 Labs: Abnormal lab results 05/04/19 05/04/19 Range/Units 02:35 02:35 WBC 13.3 H (4.5-11.0) K/mm3 Eos # 0.5 H (0.0-0.4) K/mm3 Seg Neutrophils # 8.9 H (1.8-7.7) K/mm3 Potassium 3.4 L (3.6-5.0) mmol/L Glucose 118 H (75-100) mg/dL Assessment and Plan Patient is a 43 yo man with a history of hypertension off bp medications, asthma, morbid obesity bmi 52, vertigo, tobacco dependency and GERD who presents to [facility] ED with mild achy substernal to left side non-radiating intermittent chest pains that started 2 pm yesterday associated with dizziness without headaches. The dizziness felt like room spinning with lightheadedness. He denies SOB, n/v/abd pains or trauma. He came here to the ED on 04/28/19 with similar compliant except for the dizziness. He was discharged with PPI from ED. He denies muscle weakness or slurred speech. He is being admitted to the hospital because his blood pressure is 223/108 with cp. -Chest pains, appears atypical but has +FH and risk factors: stress test am -Accelerated hypertension with urgency: ordered ECHO, start antihypertensives, with iv hydralzaine prn, counseling done, low salt diet -Dizziness without focal deficits suspect related to bp and benign vertigo: check CT head, treat the high blood pressure and use Antivert -SIRS without organ dysfunction as evident by leukocytosis and HR 93: get blood cultures and repeat cbc -Tobacco dependency: claims counsel on stopping and offered nicotine patch -Allergy to Lisinopril with swelling -Hypokalemia: replete and recheck am -Noncompliance, claims counsel done -Morbid obesity, bmi 52; counseling done DVt ppx with sq lovenox
[2019-05-04] MEDS ORDERED: MORPHINE IV PRN (15:29)
[2019-05-04] MEDS ORDERED: ZOFRAN IV PRN (15:29)
[2019-05-04] MEDS ORDERED: AMBIEN PO PRN (15:29)
[2019-05-04] MEDS ORDERED: NORCO 5/325 PO PRN (15:29)
[2019-05-04] MEDS ORDERED: ANTIVERT PO PRN (15:30)
[2019-05-04 15:47] LABS: Bilirubin,Urine NEG (Negative); Blood,Urine NEG (Negative); Color,Urine Yellow (Yellow); Mucus,Urine 2+ /HPF; Protein,Urine <15 mg/dL mg/dL (Negative); Urobilinogen,Urine < 2.0 mg/dL (<2.0)
--- NOTE | 2019-05-04 17:41 | Cat Scan Report ---
CT head/brain wo con INDICATION: dizziness. TECHNIQUE: Routine CT head without contrast. All CT scans at this location are performed using CT dos e reduction for ALARA by means of automated exposure control. COMPARISON: CT 06/20/2017. FINDINGS: BRAIN / INTRACRANIAL CONTENTS: No acute hemorrhage, mass effect, midline shift, or hydrocephalus. No appreciable acute large territorial or lacunar infarct. No chronic infarct or focal atrophy. Normal b rain volume and ventricular/sulcal size for age. ORBITS: Unchanged old medial left orbital wall fracture. SINUSES / MASTOIDS: No significant abnormality of visualized sinuses and mastoid air cells. ADDITIONAL FINDINGS: None. IMPRESSION: 1. No acute intracranial abnormality. No adverse change from the prior exam. Signer Name: Ty Dey MD Signed: 05/04/2019 5:37 PM Workstation Name: [id number]
[2019-05-04] MEDS: LOVENOX SUB-Q SCH (21:04)
[2019-05-05 05:05] LABS: Hematocrit 37.9 % (35.5-45.6); Hemoglobin 12.5 gm/dl (11.8-15.2); Mean Corpuscular HGB Conc 33 % (32-34); Mean Corpuscular Volume 91 fl (84-94); Platelet Count 325 K/mm3 (140-440); Red Blood Count 4.18 M/mm3 (3.65-5.03); Red Cell Distribution Width 14.6 % (13.2-15.2)
[2019-05-05 05:24] LABS: BUN/Creatinine Ratio 18; Blood Urea Nitrogen 14 mg/dL (9-20); Calcium 9.4 mg/dL (8.4-10.2); Chol/HDL Ratio 4.43 %; HDL Cholesterol 41 mg/dL (40-59); Hemolysis Index 7; LDL Cholesterol,Direct 122 mg/dL (50-130)
--- NOTE | 2019-05-05 07:03 | Discharge Summary ---
Providers - Providers Date of Admission: 05/04/19 07:18 Date of discharge: 05/05/19 Attending physician: ART MARES [facility] Condition: Stable Hospital course: Patient is a 43 yo man with a history of hypertension off bp medications, asthma, morbid obesity bmi 52, vertigo, tobacco dependency and GERD who presents to [facility] ED with mild achy substernal to left side non-radiating intermittent chest pains that started 2 pm yesterday associated with dizziness without headaches. The dizziness felt like room spinning with lightheadedness. He denies SOB, n/v/abd pains or trauma. He came here to the ED on 04/28/19 with similar compliant except for the dizziness. He was discharged with PPI from ED. He denies muscle weakness or slurred speech. He is being admitted to the hospital because his blood pressure is 223/108 with cp. -Chest pains, appears atypical but has +FH and risk factors: stress test am -Accelerated hypertension with urgency: ordered ECHO, start antihypertensives, with iv hydralzaine prn, counseling done, low salt diet -Dizziness without focal deficits suspect related to bp and benign vertigo: check CT head, treat the high blood pressure and use Antivert -SIRS without organ dysfunction as evident by leukocytosis and HR 93: get blood cultures and repeat cbc -Tobacco dependency: veterans rehabilitation counselor on stopping and offered nicotine patch -Allergy to Lisinopril with swelling -Hypokalemia: replete and recheck am -Noncompliance, veterans rehabilitation counselor done -Morbid obesity, bmi 52; counseling done DVt ppx with sq lovenox d/c if stress test negative and sbp <180 and ECHO pending Disposition: TO HOME OR SELFCARE Time spent for discharge: 32 mintues Core Measure Documentation - Palliative Care Palliative Care/ Comfort Measures: Not Applicable Exam - Physical Exam Narrative exam: Gen: WDWN, NAD, Awake, Alert, Orientated x 3, bmi 52 HEENT: NCAT, EOMI, PERRL, OP Clear Neck: supple, no adenopathy, no thyromegaly, no JVD CVS/Heart: RRR, normal S1S2, pulses present bilaterally Chest/Lungs: CTA B, Symmetrical chest expansion, good air entry bilaterally GI/Abdomen: soft, NTND, good bowel sounds, no guarding or rebound /Bladder: no suprapubic tenderness, no CVA or paraspinal tenderness Extermity/Skin: no c/c/e, no obvious rash MSK: FROM x 4 Neuro: CN 2-12 grossly intact, no new focal deficits Psych: calm - Constitutional Vitals: Temp Pulse Resp BP Pulse Ox 98.2 F 84 20 155/69 96 05/05/19 04:34 05/05/19 04:33 05/05/19 04:33 05/05/19 04:33 05/05/19 04:33 Plan Activity: other (no strenous activity unless cleared by PCP) Diet: low salt Additional Instructions: call [facility] for first available appointment. [phone] [facility] [Primary Care Provider[facility] - 3-5 Days Prescriptions: Meclizine [Antivert] 25 mg PO Q8H PRN #15 tablet PRN Reason: Vertigo Metoprolol [Lopressor TAB] 25 mg PO BID #60 tablet Esomeprazole Magnesium [Nexium 24Hr] 20 mg PO QDAY PRN #7 capsule. PRN Reason: Indigestion amLODIPine [Norvasc] 5 mg PO QDAY #30 tablet
[2019-05-05] MEDS ORDERED: LEXISCAN IV ONE (09:50)
[2019-05-05] MEDS: PROTONIX PO SCH (11:08)
[2019-05-05] MEDS: NORVASC PO SCH (11:08)
[2019-05-05] MEDS: LOPRESSOR PO SCH (11:09)
[2019-05-05] MEDS: BABY ASPIRIN PO SCH (11:09)
[2019-05-05] MEDS: TYLENOL PO PRN (11:12)
[2019-05-05] MEDS: APRESOLINE IV PRN (11:13)
--- NOTE | 2019-05-05 11:17 | Treadmill Report ---
NUCLEAR STRESS TEST REFERRING PHYSICIAN: Jamel Walter MD PROTOCOL: The patient was brought to the stress lab in a postabsorptive state, given 10 mCi of technetium 99m at rest. The patient underwent rest imaging. The patient underwent Lexiscan stress test. At peak stress, the patient was given 26 mCi of technetium 99m. Shortly thereafter, stress imaging. Raw imaging reveals significant GI artifact, body habitus. Technically difficult study. Gated wall motion reveals normal systolic performance with estimated ejection fraction of 50%, no TID. SPECT images examined carefully in horizontal long axis, vertical long axis and short axis views. Grossly, homogenous uptake of radioisotope in all reported segments. No evidence of significant fixed or reversible perfusion defect suggestive of prior infarction or ischemia. CONCLUSIONS: 1. Technically difficult study due to body habitus, but grossly probably normal without evidence of significant degree of ischemia or prior infarction. 2. Normal left ventricular systolic performance without evidence of transient ischemic dilatation or segmental wall motion abnormalities. [facility]# [id number] ABEL/PARIS
--- NOTE | 2019-05-05 14:19 | Progress Note ---
Assessment and Plan Assessment and plan: Patient is a 43 yo man with a history of hypertension off bp medications, asthma, morbid obesity bmi 52, vertigo, tobacco dependency and GERD who presents to [facility] ED with mild achy substernal to left side non-radiating intermittent chest pains that started 2 pm yesterday associated with dizziness without headaches. The dizziness felt like room spinning with lightheadedness. He denies SOB, n/v/abd pains or trauma. He came here to the ED on 04/28/19 with similar compliant except for the dizziness. He was discharged with PPI from ED. He denies muscle weakness or slurred speech. He is being admitted to the hospital because his blood pressure is 223/108 with cp. -Chest pains, appears atypical but has +FH and risk factors: stress test am -Accelerated hypertension with urgency: ordered ECHO, start antihypertensives, with iv hydralzaine prn, counseling done, low salt diet -Dizziness without focal deficits suspect related to bp and benign vertigo: check CT head, treat the high blood pressure and use Antivert -SIRS without organ dysfunction as evident by leukocytosis and HR 93: get blood cultures and repeat cbc -Tobacco dependency: parliamentary counsel on stopping and offered nicotine patch -Allergy to Lisinopril with swelling -Hypokalemia: replete and recheck am -Noncompliance, parliamentary counsel done -Morbid obesity, bmi 52; counseling done DVt ppx with sq lovenox disposition: continue inpatient telemetry, He had a negative stress test and ECHO and was going to be discharged home but he had a 3.4 s cardiac pause so discharge held. Consulted Cardiology, stop lopressor, stop clonidine. Ordered carotid doppler History Interval history: Patient seen and examined. Follow up chest pains and dizziness. He had a negative stress test was going to be discharged but he had a 3.4 s cardiac pause so discharge held Hospitalist Physical - Physical exam Narrative exam: Gen: WDWN, NAD, Awake, Alert, Orientated x 3, bmi 52 HEENT: NCAT, EOMI, PERRL, OP Clear Neck: supple, no adenopathy, no thyromegaly, no JVD CVS/Heart: RRR, normal S1S2, pulses present bilaterally Chest/Lungs: CTA B, Symmetrical chest expansion, good air entry bilaterally GI/Abdomen: soft, NTND, good bowel sounds, no guarding or rebound /Bladder: no suprapubic tenderness, no CVA or paraspinal tenderness Extermity/Skin: no c/c/e, no obvious rash MSK: FROM x 4 Neuro: CN 2-12 grossly intact, no new focal deficits Psych: calm - Constitutional Vitals: Temp Pulse Resp BP Pulse Ox 98.3 F 72 20 170/76 99 05/05/19 12:58 05/05/19 12:58 05/05/19 12:58 05/05/19 12:58 05/05/19 12:58 Results - Labs CBC & Chem 7: 05/05/19 04:35 05/05/19 04:35 Labs: Laboratory Last Values WBC 9.9 K/mm3 (4.5-11.0) 05/05/19 04:35 RBC 4.18 M/mm3 (3.65-5.03) 05/05/19 04:35 Hgb 12.5 gm/dl (11.8-15.2) 05/05/19 04:35 Hct 37.9 % (35.5-45.6) 05/05/19 04:35 MCV 91 fl (84-94) 05/05/19 04:35 MCH 30 pg (28-32) 05/05/19 04:35 MCHC 33 % (32-34) 05/05/19 04:35 RDW 14.6 % (13.2-15.2) 05/05/19 04:35 Plt Count 325 K/mm3 (140-440) 05/05/19 04:35 Lymph % (Auto) 25.9 % (13.4-35.0) 05/04/19 02:35 Sunflower % (Auto) 3.7 % (0.0-7.3) 05/04/19 02:35 Eos % (Auto) 3.5 % (0.0-4.3) 05/04/19 02:35 Baso % (Auto) 0.3 % (0.0-1.8) 05/04/19 02:35 Lymph # 3.4 K/mm3 (1.2-5.4) 05/04/19 02:35 Sunflower # 0.5 K/mm3 (0.0-0.8) 05/04/19 02:35 Eos # 0.5 K/mm3 (0.0-0.4) H 05/04/19 02:35 Baso # 0.0 K/mm3 (0.0-0.1) 05/04/19 02:35 Seg Neutrophils % 66.6 % (40.0-70.0) 05/04/19 02:35 Seg Neutrophils # 8.9 K/mm3 (1.8-7.7) H 05/04/19 02:35 Sodium 144 mmol/L (137-145) 05/05/19 04:35 Potassium 3.6 mmol/L (3.6-5.0) 05/05/19 04:35 Chloride 103.6 mmol/L (98-107) 05/05/19 04:35 Carbon Dioxide 31 mmol/L (22-30) H 05/05/19 04:35 13 mmol/L 05/05/19 04:35 BUN 14 mg/dL (9-20) 05/05/19 04:35 0.8 mg/dL (0.8-1.5) 05/05/19 04:35 Estimated GFR > 60 ml/min 05/05/19 04:35 18 % 05/05/19 04:35 Glucose 116 mg/dL (75-100) H 05/05/19 04:35 Calcium 9.4 mg/dL (8.4-10.2) 05/05/19 04:35 Magnesium 2.00 mg/dL (1.7-2.3) 05/05/19 04:35 < 0.010 ng/mL (0.00-0.029) 05/04/19 06:11 NT-Pro-B Natriuret Pep 404.5 pg/mL (0-450) 05/04/19 03:57 Triglycerides 214 mg/dL (2-149) H 05/05/19 04:35 Cholesterol 182 mg/dL (50-199) 05/05/19 04:35 122 mg/dL (50-130) 05/05/19 04:35 41 mg/dL (40-59) 05/05/19 04:35 4.43 % 05/05/19 04:35 TSH 3.570 mlU/mL (0.270-4.200) 05/05/19 04:35 Yellow (Yellow) 05/04/19 07:58 Slightly-cloudy (Clear) 05/04/19 07:58 5.0 (5.0-7.0) 05/04/19 07:58 Ur Specific [place] 1.021 (1.003-1.030) 05/04/19 07:58 <15 mg/dl mg/dL (Negative) 05/04/19 07:58 Neg mg/dL (Negative) 05/04/19 07:58 Neg mg/dL (Negative) 05/04/19 07:58 Neg (Negative) 05/04/19 07:58 Neg (Negative) 05/04/19 07:58 Neg (Negative) 05/04/19 07:58 < 2.0 mg/dL (<2.0) 05/04/19 07:58 Ur Leukocyte Esterase Neg (Negative) 05/04/19 07:58 8.0 /HPF (0.0-6.0) H 05/04/19 07:58 2.0 /HPF (0.0-6.0) 05/04/19 07:58 U Epithel Cells (Auto) 8.0 /HPF (0-13.0) 05/04/19 07:58 2+ /HPF 05/04/19 07:58 Active Medications - Current Medications Current Medications: Generic Name Dose Route Start Last Admin Trade Name Freq PRN Reason Stop Dose Admin Acetaminophen 650 mg 05/04/19 11:52 05/05/19 11:12 Tylenol PO 650 mg Q6H PRN Administration Pain, Mild (1-3) Acetaminophen/Hydrocodone Bitart 1 each 05/04/19 15:29 [place] 5/325 PO Q4H PRN Pain, Moderate (4-6) Amlodipine Besylate 5 mg 05/04/19 10:00 05/05/19 11:08 Norvasc PO 5 mg QDAY TRUPTI Administration Aspirin 81 mg 05/05/19 10:00 05/05/19 11:09 Baby Aspirin PO 81 mg QDAY TRUPTI Administration Enoxaparin Sodium 40 mg 05/04/19 22:00 05/04/19 21:04 Lovenox SUB-Q 40 mg QDAY@2200 TRUPTI Administration Hydralazine HCl 10 mg 05/04/19 07:59 05/05/19 11:13 Apresoline IV 10 mg Q4HR PRN Administration Blood Pressure Meclizine HCl 25 mg 05/04/19 15:30 Antivert PO Q8H PRN Vertigo Metoprolol Tartrate 25 mg 05/04/19 10:00 05/05/19 11:09 Lopressor PO 25 mg BID TRUPTI Administration Morphine Sulfate 2 mg 05/04/19 15:29 Morphine IV Q4H PRN Pain , Severe (7-10) Ondansetron HCl 4 mg 05/04/19 15:29 Zofran IV Q4H PRN Nausea And Vomiting Pantoprazole Sodium 40 mg 05/05/19 10:00 05/05/19 11:08 Protonix PO 40 mg QDAY TRUPTI Administration Zolpidem Tartrate 5 mg 05/04/19 15:29 Ambien PO QHS PRN Sleep
--- NOTE | 2019-05-05 14:21 | Consultation ---
History of Present Illness Consult date: 05/05/19 Requesting physician: ART MARES Consult reason: bradycardia History of present illness: the patient is a 43 yo male with a history of hypertension (not taking medications due to lack of insurance), vertigo, asthma, morbid obesity (bmi 52), GERD, tobacco use. He is previously unknown to our practice. He presented with c/o "vertigo" and chest pain/epigastric pain for several weeks prior to arrival. Pt presented to [facility] ED on 04/28/19 with similar compliants and was discharged with PPI from ED. Pt describes his chest pain and epigastric pain as an intermittent burning which appears to be alleviated by drinking water. 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 BP on arrival was 223/108. Pt underwent lexiscan MPI stress test this AM which was TDS, no significant ischemia, normal EF. Echo showed EF 60-65%, mild AR. Pt states chest pain and ve rtigo are currently resolved. Pt was pending discharge home today when he was noted to have 3.4sec sinus pause with intermittent sinus bradycardia on telemetry and thus cardiology has been consulted. Pt states that he was sleeping around the time that the pause occurred. Pt denies any diagnosis of sleep apnea, but reports that his said he does snore sometimes and that he does wake up gasping for air sometimes. Additionally, pt was initiated on lopressor on this admission. Past History Past Medical History: hypertension Social history: , smoking Medications and Allergies Allergies Allergy/AdvReac Type Severity Reaction Status Date / Time lisinopril Allergy Swelling Verified 11/17/17 04:26 Home Medications Medication Instructions Recorded Confirmed Last Taken Type Acetaminophen [Acetaminophen TAB] 2 tab PO Q6H PRN #15 tablet 05/05/19 Unknown Rx Aspirin [Aspirin BABY CHEW TAB] 81 mg PO QDAY #30 tab.chew 05/05/19 Unknown Rx Esomeprazole Magnesium [Nexium 20 mg PO QDAY PRN #7 capsule. 05/05/19 Unknown Rx 24Hr] Meclizine [Antivert] 25 mg PO Q8H PRN #15 tablet 05/05/19 Unknown Rx Metoprolol [Lopressor TAB] 25 mg PO BID #60 tablet 05/05/19 Unknown Rx amLODIPine [Norvasc] 5 mg PO QDAY #30 tablet 05/05/19 Unknown Rx Active Meds: Active Medications Acetaminophen (Tylenol) 650 mg PO Q6H PRN PRN Reason: Pain, Mild (1-3) Last Admin: 05/05/19 11:12 Dose: 650 mg Documented by: Acetaminophen/Hydrocodone Bitart ([place] 5/325) 1 each PO Q4H PRN PRN Reason: Pain, Moderate (4-6) Amlodipine Besylate (Norvasc) 5 mg PO QDAY [facility] Last Admin: 05/05/19 11:08 Dose: 5 mg Documented by: Aspirin (Baby Aspirin) 81 mg PO QDAY [facility] Last Admin: 05/05/19 11:09 Dose: 81 mg Documented by: Enoxaparin Sodium (Lovenox) 40 mg SUB-Q QDAY@2200 [facility] Last Admin: 05/04/19 21:04 Dose: 40 mg Documented by: Hydralazine HCl (Apresoline) 10 mg IV Q4HR PRN PRN Reason: Blood Pressure Last Admin: 05/05/19 11:13 Dose: 10 mg Documented by: Meclizine HCl (Antivert) 25 mg PO Q8H PRN PRN Reason: Vertigo Metoprolol Tartrate (Lopressor) 25 mg PO BID [facility] Last Admin: 05/05/19 11:09 Dose: 25 mg Documented by: Morphine Sulfate (Morphine) 2 mg IV Q4H PRN PRN Reason: Pain , Severe (7-10) Ondansetron HCl (Zofran) 4 mg IV Q4H PRN PRN Reason: Nausea And Vomiting Pantoprazole Sodium (Protonix) 40 mg PO QDAY [facility] Last Admin: 05/05/19 11:08 Dose: 40 mg Documented by: Zolpidem Tartrate (Ambien) 5 mg PO QHS PRN PRN Reason: Sleep Review of Systems Constitutional: no fever, no chills, no sweats Ears, nose, mouth and throat: no ear pain, no nose pain, no sinus pressure, no sinus pain Cardiovascular: chest pain, shortness of breath, dyspnea on exertion, high blood pressure, no orthopnea, no palpitations, no rapid/irregular heart beat, no edema, no syncope, no lightheadedness, no leg edema Respiratory: shortness of breath, dyspnea on exertion, no cough, no congestion, no wheezing, no pain on inspiration Gastrointestinal: no abdominal pain, no nausea, no vomiting, no diarrhea, no constipation, no change in bowel habits Genitourinary Male: no dysuria, no hematuria, no flank pain, no discharge, no urinary frequency, no urinary hesitancy Musculoskeletal: no neck stiffness, no neck pain, no shooting arm pain, no arm numbness/tingling, no low back pain, no shooting leg pain Integumentary: no rash, no pruritis, no redness, no sores, no wounds Neurological: vertigo, no head injury, no paralysis, no weakness, no parathesia s, no numbness, no tingling, no seizures, no syncope Psychiatric: no anxiety Endocrine: no cold intolerance, no heat intolerance Hematologic/Lymphatic: no easy bruising, no easy bleeding Allergic/Immunologic: no urticaria, no wheezing Physical Examination Vital Signs Temp Pulse Resp BP Pulse Ox 98.5 F 93 H 20 223/108 96 05/04/19 02:11 05/04/19 02:11 05/04/19 02:11 05/04/19 02:11 05/04/19 02:11 General appearance: no acute distress HEENT: Positive: PERRL, Normocephaly, Mucus Membranes Moist Neck: Positive: neck supple, trachea midline Cardiac: Positive: Reg Rate and Rhythm, S1/S2 Lungs: Positive: Decreased Breath Sounds Neuro: Positive: Grossly Intact Abdomen: Negative: Tender Skin: Positive: Clear. Negative: Rash, Wound Musculoskeletal: No Pain Extremities: Absent: edema Results 05/05/19 04:35 05/05/19 04:35 Lipids 05/05/19 Range/Units 04:35 Triglycerides 214 H (2-149) mg/dL Cholesterol 182 (50-199) mg/dL HDL Cholesterol 41 (40-59) mg/dL Cholesterol/HDL Ratio 4.43 % CBC 05/05/19 Range/Units 04:35 WBC 9.9 (4.5-11.0) K/mm3 RBC 4.18 (3.65-5.03) M/mm3 Hgb 12.5 (11.8-15.2) gm/dl Hct 37.9 (35.5-45.6) % Plt Count 325 (140-440) K/mm3 Comprehensive Metabolic Panel 05/05/19 Range/Units 04:35 Sodium 144 (137-145) mmol/L Potassium 3.6 (3.6-5.0) mmol/L Chloride 103.6 (98-107) mmol/L Carbon Dioxide 31 H (22-30) mmol/L BUN 14 (9-20) mg/dL Creatinine 0.8 (0.8-1.5) mg/dL Glucose 116 H (75-100) mg/dL Calcium 9.4 (8.4-10.2) mg/dL EKG interpretations - Telemetry EKG Rhythm: Sinus Rhythm - EKG Sinus rhythms and dysrhythmias: sinus rhythm Repolarization changes or abnormalities: repolarization abn secondary to ventricular hypertrophy Assessment and Plan Pt underwent lexiscan MPI stress test this AM which was TDS, no significant ischemia, normal EF. Echo showed EF 60-65%, mild AR. Pt was pending discharge home today when he was noted to have 3.4sec sinus pause with intermittent sinus bradycardia on telemetry and thus cardiology has been consulted. Pt states that he was sleeping around the time that the pause occurred. Pt with morbid obesity and suspected CLAUDIA. Additionally, pt was initiated on lopressor on this admission. Thyroid profile WNL. Currently stable cardiac status. D/c AV adelia blocking agents and initiate hydralazine for BP optimization. Initiate CPAP tonight and cont to observe on telemetry. Pending no acute events overnight, likely d/c home in AM. At discharge, pt would benefit from OP sleep study. The patient has been seen in conjunction with Dr. SERENITY Bishop who agrees with the assessment and plan of care. - Patient Problems (1) Uncontrolled hypertension Current Visit: Yes Status: Acute (2) Sinus pause Current Visit: Yes Status: Acute (3) Sinus bradycardia Current Visit: Yes Status: Acute (4) Chest pain Current Visit: Yes Status: Resolved Qualifiers: Chest pain type: unspecified Qualified Code(s): R07.9 - Chest pain, unspecified (5) Vertigo Current Visit: Yes Status: Acute (6) GERD (gastroesophageal reflux disease) Current Visit: Yes Status: Chronic (7) Morbid obesity Current Visit: Yes Status: Chronic (8) Noncompliance with medication regimen Current Visit: Yes Status: Chronic (9) Tobacco use Current Visit: Yes Status: Chronic (10) CLAUDIA (obstructive sleep apnea) Current Visit: Yes Status: Suspected
--- NOTE | 2019-05-05 15:43 | Vascular Lab Report ---
BILATERAL CAROTID DOPPLER ULTRASOUND INDICATION : dizziness, cardiac pause, syncope TECHNIQUE: Grayscale and color Doppler imaging performed through the neck. COMPARISON: None FINDINGS: Right: There is no significant atherosclerotic disease. Peak systolic velocity in the CCA is 150 cm /s with end-diastolic velocity of 13 cm/s. Peak systolic velocity in the proximal ICA is 72 cm/s with end-diastolic velocity of 26 cm/s. ICA to CCA ratio is less than 2. There is antegrade flow in the ECA and the vertebral artery. Left: There is no significant atherosclerotic disease. Peak systolic velocity in the CCA is 139 cm/s with end-diastolic velocity of 26 cm/s. Peak systolic velocity in the proximal ICA is 84 cm/s with en d-diastolic velocity of 28 cm/s. ICA to CCA ratio is less than 2. There is antegrade flow in the ECA and the vertebral artery. IMPRESSION: No hemodynamically significant stenosis by NASCET criteria. Signer Name: Roberth Huntley Jr, MD Signed: 05/05/2019 3:39 PM Workstation Name: [id number]
[2019-05-05] MEDS: APRESOLINE PO SCH ×2 (17:08→21:26)
[2019-05-05] MEDS: LOVENOX SUB-Q SCH (21:26)
[2019-05-06] MEDS: APRESOLINE PO SCH ×3 (06:19→21:29)
[2019-05-06] MEDS: NORVASC PO SCH (09:00)
[2019-05-06] MEDS: PROTONIX PO SCH (09:01)
[2019-05-06] MEDS: BABY ASPIRIN PO SCH (09:01)
--- NOTE | 2019-05-06 10:48 | Progress Note ---
Assessment and Plan This is a morbidly obese gentleman is seen for cardiac evaluation because of chest pain. Echocardiogram and the stress test was noted to be negative. Patient has periods of bradyarrhythmias and at times short periods of second- degree AV block. However when he is walking and when he is active his heart rate response is appropriate. Abad arrhythmias are most likely related to sleep apnea /obesity hypoventilation syndrome. Case discussed with Dr. Ramos. Will obtain pulmonary evaluation. Problem discussed and explained to the pat ient in detail. Will increase the hydralazine and monitor the blood pressure closely. - Patient Problems (1) Uncontrolled hypertension Current Visit: Yes Status: Acute (2) Sinus pause Current Visit: Yes Status: Acute (3) Sinus bradycardia Current Visit: Yes Status: Acute (4) Obesity Current Visit: No Status: Acute (5) HTN (hypertension) Current Visit: No Status: Acute Subjective Date of service: 05/06/19 Interval history: Patient has no symptoms. Denies chest pain difficulty in breathing or palpitations. Objective Vital Signs Temp Pulse Resp BP Pulse Ox 05/06/19 09:00 82 164/82 05/06/19 08:08 98.1 F 18 164/82 05/06/19 03:44 98.0 F 87 18 165/97 100 05/06/19 00:05 98.0 F 89 18 165/64 97 05/05/19 23:30 90 100 05/05/19 20:44 79 05/05/19 19:04 98.3 F 79 20 149/86 98 05/05/19 18:45 98.4 F 75 18 132/69 98 05/05/19 17:08 74 176/87 05/05/19 16:44 98.4 F 74 18 190/95 98 05/05/19 12:58 98.3 F 72 20 170/76 99 05/05/19 11:13 84 191/90 05/05/19 11:09 84 191/90 05/05/19 11:08 84 - Physical Examination General: Appears Well, Other (obese gentleman in no distress) HEENT: Positive: PERRL, Normocephaly, Mucus Membranes Moist Neck: Positive: neck supple, trachea midline Cardiac: Positive: Reg Rate and Rhythm Lungs: Positive: Normal Breath Sounds Neuro: Positive: Grossly Intact Abdomen: Positive: Soft. Negative: Tender Skin: Positive: Clear. Negative: Rash, Wound Musculoskeletal: No Pain Extremities: Present: normal. Absent: edema - EKG Sinus rhythms and dysrhythmias: sinus rhythm Repolarization changes or abnormalities: repolarization abn secondary to ventricular hypertrophy
[2019-05-06] MEDS: APRESOLINE IV PRN ×3 (11:56→21:29)
--- NOTE | 2019-05-06 13:30 | Progress Note ---
Assessment and Plan Assessment and plan: Patient is a 43 yo man with a history of hypertension off bp medications, asthma, morbid obesity bmi 52, vertigo, tobacco dependency and GERD who presents to [facility] ED with mild achy substernal to left side non-radiating intermittent chest pains that started 2 pm yesterday associated with dizziness without headaches. The dizziness felt like room spinning with lightheadedness. He denies SOB, n/v/abd pains or trauma. He came here to the ED on 04/28/19 with similar compliant except for the dizziness. He was discharged with PPI from ED. He denies muscle weakness or slurred speech. He is being admitted to the hospital because his blood pressure is 223/108 with cp. * 2D ECHO conclusions: The study quality is technically difficult, global left ventricular systolic function is normal, estimated EF is 60-65%, normal left ventricular diastolic filling is observed, there is mild aortic regurgitation, no pericardial effusion, the right ventricular cavity size is normal, the right ventricular global systolic function is normal * Stress test is negative * Carotid doppler negative -Chest pains, costochondritis most likely, +FH and risk factors: stress test negative -Accelerated hypertension with urgency: ordered ECHO, start antihypertensives, with iv hydralzaine prn, counseling done, low salt diet -Dizziness without focal deficits most likely Bradyarrhythmia -Positive FH as father had heart problems in his 40s -Type 2 AV block: Cardiology is following -CLAUDIA suspected: Pulmonology consulted, recommends outpatient sleep study -SIRS without organ dysfunction as evident by leukocytosis and HR 93: get blood cultures and repeat cbc -Tobacco dependency: financial health counselor on stopping and offered nicotine patch -Allergy to Lisinopril with swelling -Hypokalemia: replete and recheck am -Noncompliance, financial health counselor done -Morbid obesity, bmi 53; counseling done DVt ppx with sq lovenox Disposition: continue inpatient telemetry, He had a negative stress test and ECHO and was going to be discharged home but he had a 3.4 s cardiac pause on Wednesday at 1:30 pm so discharge held. Cardiology consulted. The lopressor and clonidine stopped. Ordered carotid doppler which was negative. This morning at 8:33am he had type 2 AV block and Play Therapist, Dr. Reji Bishop approached me to recommend CLAUDIA assessment and pulmonary consult which I placed. History Interval history: Patient seen and examined. Follow up chest pains and dizziness. He had a negative stress test was going to be discharged but he had a 3.4 s cardiac pause so discharge held Hospitalist Physical - Physical exam Narrative exam: Gen: WDWN, NAD, Awake, Alert, Orientated x 3, bmi 52 HEENT: NCAT, EOMI, PERRL, OP Clear Neck: supple, no adenopathy, no thyromegaly, no JVD CVS/Heart: RRR, normal S1S2, pulses present bilaterally Chest/Lungs: CTA B, Symmetrical chest expansion, good air entry bilaterally GI/Abdomen: soft, NTND, good bowel sounds, no guarding or rebound /Bladder: no suprapubic tenderness, no CVA or paraspinal tenderness Extermity/Skin: no c/c/e, no obvious rash MSK: FROM x 4 Neuro: CN 2-12 grossly intact, no new focal deficits Psych: calm - Constitutional Vitals: Temp Pulse Resp BP Pulse Ox 98.1 F 76 18 190/104 100 05/06/19 08:08 05/06/19 11:56 05/06/19 10:00 05/06/19 11:56 05/06/19 03:44 General appearance: Present: no acute distress Results - Labs CBC & Chem 7: 05/05/19 04:35 05/05/19 04:35 Labs: Laboratory Last Values WBC 9.9 K/mm3 (4.5-11.0) 05/05/19 04:35 RBC 4.18 M/mm3 (3.65-5.03) 05/05/19 04:35 Hgb 12.5 gm/dl (11.8-15.2) 05/05/19 04:35 Hct 37.9 % (35.5-45.6) 05/05/19 04:35 MCV 91 fl (84-94) 05/05/19 04:35 MCH 30 pg (28-32) 05/05/19 04:35 MCHC 33 % (32-34) 05/05/19 04:35 RDW 14.6 % (13.2-15.2) 05/05/19 04:35 Plt Count 325 K/mm3 (140-440) 05/05/19 04:35 Lymph % (Auto) 25.9 % (13.4-35.0) 05/04/19 02:35 [place] % (Auto) 3.7 % (0.0-7.3) 05/04/19 02:35 Eos % (Auto) 3.5 % (0.0-4.3) 05/04/19 02:35 Baso % (Auto) 0.3 % (0.0-1.8) 05/04/19 02:35 Lymph # 3.4 K/mm3 (1.2-5.4) 05/04/19 02:35 [place] # 0.5 K/mm3 (0.0-0.8) 05/04/19 02:35 Eos # 0.5 K/mm3 (0.0-0.4) H 05/04/19 02:35 Baso # 0.0 K/mm3 (0.0-0.1) 05/04/19 02:35 Seg Neutrophils % 66.6 % (40.0-70.0) 05/04/19 02:35 Seg Neutrophils # 8.9 K/mm3 (1.8-7.7) H 05/04/19 02:35 Sodium 144 mmol/L (137-145) 05/05/19 04:35 Potassium 3.6 mmol/L (3.6-5.0) 05/05/19 04:35 Chloride 103.6 mmol/L (98-107) 05/05/19 04:35 Carbon Dioxide 31 mmol/L (22-30) H 05/05/19 04:35 13 mmol/L 05/05/19 04:35 BUN 14 mg/dL (9-20) 05/05/19 04:35 0.8 mg/dL (0.8-1.5) 05/05/19 04:35 Estimated GFR > 60 ml/min 05/05/19 04:35 18 % 05/05/19 04:35 Glucose 116 mg/dL (75-100) H 05/05/19 04:35 Calcium 9.4 mg/dL (8.4-10.2) 05/05/19 04:35 Magnesium 2.00 mg/dL (1.7-2.3) 05/05/19 04:35 < 0.010 ng/mL (0.00-0.029) 05/04/19 06:11 NT-Pro-B Natriuret Pep 404.5 pg/mL (0-450) 05/04/19 03:57 Triglycerides 214 mg/dL (2-149) H 05/05/19 04:35 Cholesterol 182 mg/dL (50-199) 05/05/19 04:35 122 mg/dL (50-130) 05/05/19 04:35 41 mg/dL (40-59) 05/05/19 04:35 4.43 % 05/05/19 04:35 TSH 3.570 mlU/mL (0.270-4.200) 05/05/19 04:35 Yellow (Yellow) 05/04/19 07:58 Slightly-cloudy (Clear) 05/04/19 07:58 5.0 (5.0-7.0) 05/04/19 07:58 Ur Specific [place] 1.021 (1.003-1.030) 05/04/19 07:58 <15 mg/dl mg/dL (Negative) 05/04/19 07:58 Neg mg/dL (Negative) 05/04/19 07:58 Neg mg/dL (Negative) 05/04/19 07:58 Neg (Negative) 05/04/19 07:58 Neg (Negative) 05/04/19 07:58 Neg (Negative) 05/04/19 07:58 < 2.0 mg/dL (<2.0) 05/04/19 07:58 Ur Leukocyte Esterase Neg (Negative) 05/04/19 07:58 8.0 /HPF (0.0-6.0) H 05/04/19 07:58 2.0 /HPF (0.0-6.0) 05/04/19 07:58 U Epithel Cells (Auto) 8.0 /HPF (0-13.0) 05/04/19 07:58 2+ /HPF 05/04/19 07:58 Active Medications - Current Medications Current Medications: Generic Name Dose Route Start Last Admin Trade Name Freq PRN Reason Stop Dose Admin Acetaminophen 650 mg 05/04/19 11:52 05/05/19 11:12 Tylenol PO 650 mg Q6H PRN Administration Pain, Mild (1-3) Acetaminophen/Hydrocodone Bitart 1 each 05/04/19 15:29 [place] 5/325 PO Q4H PRN Pain, Moderate (4-6) Amlodipine Besylate 5 mg 05/04/19 10:00 05/06/19 09:00 Norvasc PO 5 mg QDAY TRUPTI Administration Aspirin 81 mg 05/05/19 10:00 05/06/19 09:01 Baby Aspirin PO 81 mg QDAY TRUPTI Administration Enoxaparin Sodium 40 mg 05/04/19 22:00 05/05/19 21:26 Lovenox SUB-Q 40 mg QDAY@2200 TRUPTI Administration Hydralazine HCl 10 mg 05/04/19 07:59 05/06/19 11:56 Apresoline IV 10 mg Q4HR PRN Administration Blood Pressure Hydralazine HCl 50 mg 05/05/19 15:00 05/06/19 06:19 Apresoline PO 50 mg Q8HR TRUPTI Administration Meclizine HCl 25 mg 05/04/19 15:30 Antivert PO Q8H PRN Vertigo Morphine Sulfate 2 mg 05/04/19 15:29 05/05/19 17:09 Morphine IV 2 mg Q4H PRN Administration Pain , Severe (7-10) Ondansetron HCl 4 mg 05/04/19 15:29 Zofran IV Q4H PRN Nausea And Vomiting Pantoprazole Sodium 40 mg 05/05/19 10:00 05/06/19 09:01 Protonix PO 40 mg QDAY TRUPTI Administration Zolpidem Tartrate 5 mg 05/04/19 15:29 05/05/19 21:36 Ambien PO 5 mg QHS PRN Administration Sleep
--- NOTE | 2019-05-06 13:40 | Consultation ---
History of Present Illness Consult date: 05/06/19 Requesting physician: LISA ALEMAN Reason for consult: other (concern for CLAUDIA) History of present illness: 43 y/o morbidly obese male, who whom have been asked to see for possibly sleep apnea. Per patient, his states he snores. He is not aware if he stops breathing. patient does have increased daytime sleepiness. Sometimes has morning headaches. patient has been having some electrical abnormalities and c ardiology was concerned that this was related to sleep apnea. Past History Past Medical History: hypertension Social history: , smoking Medications and Allergies Allergies Allergy/AdvReac Type Severity Reaction Status Date / Time lisinopril Allergy Swelling Verified 11/17/17 04:26 Home Medications Medication Instructions Recorded Confirmed Last Taken Type Acetaminophen [Acetaminophen TAB] 2 tab PO Q6H PRN #15 tablet 05/05/19 Unknown Rx Aspirin [Aspirin BABY CHEW TAB] 81 mg PO QDAY #30 tab.chew 05/05/19 Unknown Rx Esomeprazole Magnesium [Nexium 20 mg PO QDAY PRN #7 capsule.dr 05/05/19 Unknown Rx 24Hr] Meclizine [Antivert] 25 mg PO Q8H PRN #15 tablet 05/05/19 Unknown Rx Metoprolol [Lopressor TAB] 25 mg PO BID #60 tablet 05/05/19 Unknown Rx amLODIPine [Norvasc] 5 mg PO QDAY #30 tablet 05/05/19 Unknown Rx Active Meds: Active Medications Acetaminophen (Tylenol) 650 mg PO Q6H PRN PRN Reason: Pain, Mild (1-3) Last Admin: 05/05/19 11:12 Dose: 650 mg Documented by: Acetaminophen/Hydrocodone Bitart ([place] 5/325) 1 each PO Q4H PRN PRN Reason: Pain, Moderate (4-6) Amlodipine Besylate (Norvasc) 5 mg PO QDAY [facility] Last Admin: 05/06/19 09:00 Dose: 5 mg Documented by: Aspirin (Baby Aspirin) 81 mg PO QDAY [facility] Last Admin: 05/06/19 09:01 Dose: 81 mg Documented by: Enoxaparin Sodium (Lovenox) 40 mg SUB-Q QDAY@2200 [facility] Last Admin: 05/05/19 21:26 Dose: 40 mg Documented by: Hydralazine HCl (Apresoline) 10 mg IV Q4HR PRN PRN Reason: Blood Pressure Last Admin: 05/06/19 11:56 Dose: 10 mg Documented by: Hydralazine HCl (Apresoline) 50 mg PO Q8HR [facility] Last Admin: 05/06/19 06:19 Dose: 50 mg Documented by: Meclizine HCl (Antivert) 25 mg PO Q8H PRN PRN Reason: Vertigo Morphine Sulfate (Morphine) 2 mg IV Q4H PRN PRN Reason: Pain , Severe (7-10) Last Admin: 05/05/19 17:09 Dose: 2 mg Documented by: Ondansetron HCl (Zofran) 4 mg IV Q4H PRN PRN Reason: Nausea And Vomiting Pantoprazole Sodium (Protonix) 40 mg PO QDAY [facility] Last Admin: 05/06/19 09:01 Dose: 40 mg Documented by: Zolpidem Tartrate (Ambien) 5 mg PO QHS PRN PRN Reason: Sleep Last Admin: 05/05/19 21:36 Dose: 5 mg Documented by: Review of Systems All systems: negative Physical Examination Vital signs: Vital Signs Temp Pulse Resp BP Pulse Ox 98.5 F 93 H 20 223/108 96 05/04/19 02:11 05/04/19 02:11 05/04/19 02:11 05/04/19 02:11 05/04/19 02:11 General appearance: no acute distress, alert Eyes: non-icteric ENT: oropharynx moist Neck: other (large in circumference) Effort: normal Ascultation: Bilateral: clear Percussion: Bilateral: not dull Tactile fremitus: Bilateral: normal Cardiovascular: regular rate and rhythm Gastrointestinal: normoactive bowel sounds, soft, non-tender Musculoskeletal: no deformities normal mental status, non-focal exam Results - Laboratory Findings CBC and BMP: 05/05/19 04:35 05/05/19 04:35 Abnormal lab findings: Abnormal Labs 05/04/19 05/04/19 05/04/19 02:35 02:35 07:58 WBC 13.3 H Eos # 0.5 H Seg Neutrophils # 8.9 H Potassium 3.4 L Carbon Dioxide Glucose 118 H Triglycerides Urine WBC (Auto) 8.0 H 05/05/19 04:35 WBC Eos # Seg Neutrophils # Potassium Carbon Dioxide 31 H Glucose 116 H Triglycerides 214 H Urine WBC (Auto) - Diagnostic Findings Chest x-ray: image reviewed (clear CXR) Assessment and Plan 43 y/o male with morbid obesity, possible CLAUDIA 1. Will need outpatient sleep study for adequate evaluation and diagnosis 2. Encouraged weight loss and smoking cessation 3. Would not start CPAP here inhouse without adequate study evaluation as likely will reduce patient compliance in the future. 4. Thank you for this consult. Call if questions. Will sign off for now.
[2019-05-06] MEDS ORDERED: NORVASC PO ONE (21:16)
[2019-05-06] MEDS: LOVENOX SUB-Q SCH (21:29)
[2019-05-07] MEDS: TYLENOL PO PRN (06:01)
[2019-05-07] MEDS: APRESOLINE PO SCH ×3 (06:01→22:05)
[2019-05-07] MEDS: BABY ASPIRIN PO SCH (09:02)
[2019-05-07] MEDS: PROTONIX PO SCH (09:02)
[2019-05-07] MEDS: NORVASC PO SCH (09:02)
--- NOTE | 2019-05-07 13:04 | Progress Note ---
Assessment and Plan This is a morbidly obese gentleman is seen for cardiac evaluation because of chest pain. Echocardiogram and the stress test was noted to be negative. Patient has periods of bradyarrhythmias and at times short periods of second- degree AV block. However when he is walking and when he is active his heart rate response is appropriate. Abad arrhythmias are most likely related to sleep apnea /obesity hypoventilation syndrome. Case discussed with Dr. Ramos. Discussed with Dr. Sandhu and the advanced practice nurse. Problem discussed and expla ined to the patient in detail. During the last night patient had been episodes of hypoxia. Currently he is on oxygen. Patient had sinus bradycardia but no symptomatic high-grade AV block has been documented. Case discussed with Dr. Ramos. He is planning on keeping him on oxygen and continue monitoring. - Patient Problems (1) Uncontrolled hypertension Current Visit: Yes Status: Acute (2) Sinus pause Current Visit: Yes Status: Acute (3) Sinus bradycardia Current Visit: Yes Status: Acute (4) Obesity Current Visit: No Status: Acute (5) HTN (hypertension) Current Visit: No Status: Acute Subjective Date of service: 05/07/19 Interval history: Patient feels well today. No cardiac symptoms. Objective Vital Signs Temp Pulse Resp BP Pulse Ox 05/07/19 10:00 88 05/07/19 09:02 76 143/83 05/07/19 08:13 18 05/07/19 07:40 98.1 F 18 143/84 05/07/19 04:34 98.0 F 89 18 155/74 98 05/06/19 23:46 98.3 F 90 18 189/71 99 05/06/19 22:00 85 05/06/19 19:24 98.1 F 84 18 207/84 100 05/06/19 18:13 80 193/82 05/06/19 18:07 18 192/83 05/06/19 16:10 98.5 F 18 182/81 05/06/19 13:41 82 179/86 05/06/19 13:38 18 - Physical Examination General: Appears Well, Other (obese gentleman in no distress) HEENT: Positive: PERRL, Normocephaly, Mucus Membranes Moist Neck: Positive: neck supple, trachea midline Cardiac: Positive: Reg Rate and Rhythm Lungs: Positive: clear to auscultation Neuro: Positive: Grossly Intact Abdomen: Positive: Soft. Negative: Tender Skin: Positive: Clear. Negative: Rash, Wound Musculoskeletal: No Pain Extremities: Present: normal. Absent: edema - EKG Sinus rhythms and dysrhythmias: sinus rhythm Repolarization changes or abnormalities: repolarization abn secondary to ventricular hypertrophy
--- NOTE | 2019-05-07 14:54 | Progress Note ---
Assessment and Plan Assessment and plan: Patient is a 43 yo man with a history of hypertension off bp medications, asthma, morbid obesity bmi 52, vertigo, tobacco dependency and GERD who presents to [facility] ED with mild achy substernal to left side non-radiating intermittent chest pains that started 2 pm yesterday associated with dizziness without headaches. The dizziness felt like room spinning with lightheadedness. He denies SOB, n/v/abd pains or trauma. He came here to the ED on 04/28/19 with similar compliant except for the dizziness. He was discharged with PPI from ED. He denies muscle weakness or slurred speech. He is being admitted to the hospital because his blood pressure is 223/108 with cp. * 2D ECHO conclusions: The study quality is technically difficult, global left ventricular systolic function is normal, estimated EF is 60-65%, normal left ventricular diastolic filling is observed, there is mild aortic regurgitation, no pericardial effusion, the right ventricular cavity size is normal, the right ventricular global systolic function is normal * Stress test is negative * Carotid doppler negative -Chest pains, costochondritis most likely, +FH and risk factors: stress test negative -Accelerated hypertension with urgency: ordered ECHO, start antihypertensives, with iv hydralzaine prn, counseling done, low salt diet -Dizziness without focal deficits most likely Bradyarrhythmia and hypoxia -Acute hypoxic respiratory failure: continue 02 especically at night or while sleeping -Positive FH as father had heart problems in his 40s -Type 2 AV block: Cardiology is following -CLAUDIA suspected: Pulmonology consulted, recommends outpatient sleep study -SIRS without organ dysfunction as evident by leukocytosis and HR 93: get blood cultures and repeat cbc -Tobacco dependency: alcohol and drug counselor on stopping and offered nicotine patch -Allergy to Lisinopril with swelling -Hypokalemia: replete and recheck am -Noncompliance, alcohol and drug counselor done -Morbid obesity, bmi 53; counseling done DVt ppx with sq lovenox Disposition: continue inpatient telemetry, He had a negative stress test and ECHO and was going to be discharged home but he had a 3.4 s cardiac pause on Wednesday at 1:30 pm so discharge held. Cardiology consulted. The lopressor and clonidine stopped. Ordered carotid doppler which was negative. 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 Continuous pulse ox captured episodes of severe hypoxia, 75%, treated with O2, he needs outpatient sleep study. Continue continous o2 to see if 2 liters of O2 prevents the hypoxia Arrange home o2 and then discharge. History Interval history: Patient seen and examined. Follow up chest pains and dizziness. He had a negative stress test was going to be discharged but he had a 3.4 s cardiac pause so discharge held Hospitalist Physical - Physical exam Narrative exam: Gen: WDWN, NAD, Awake, Alert, Orientated x 3, bmi 52 HEENT: NCAT, EOMI, PERRL, OP Clear Neck: supple, no adenopathy, no thyromegaly, no JVD CVS/Heart: RRR, normal S1S2, pulses present bilaterally Chest/Lungs: CTA B, Symmetrical chest expansion, good air entry bilaterally GI/Abdomen: soft, NTND, good bowel sounds, no guarding or rebound /Bladder: no suprapubic tenderness, no CVA or paraspinal tenderness Extermity/Skin: no c/c/e, no obvious rash MSK: FROM x 4 Neuro: CN 2-12 grossly intact, no new focal deficits Psych: calm - Constitutional Vitals: Temp Pulse Resp BP Pulse Ox 98.1 F 76 18 160/82 98 05/07/19 07:40 05/07/19 13:33 05/07/19 08:13 05/07/19 13:33 05/07/19 04:34 General appearance: Present: no acute distress Results - Labs CBC & Chem 7: 05/05/19 04:35 05/05/19 04:35 Labs: Laboratory Last Values WBC 9.9 K/mm3 (4.5-11.0) 05/05/19 04:35 RBC 4.18 M/mm3 (3.65-5.03) 05/05/19 04:35 Hgb 12.5 gm/dl (11.8-15.2) 05/05/19 04:35 Hct 37.9 % (35.5-45.6) 05/05/19 04:35 MCV 91 fl (84-94) 05/05/19 04:35 MCH 30 pg (28-32) 05/05/19 04:35 MCHC 33 % (32-34) 05/05/19 04:35 RDW 14.6 % (13.2-15.2) 05/05/19 04:35 Plt Count 325 K/mm3 (140-440) 05/05/19 04:35 Lymph % (Auto) 25.9 % (13.4-35.0) 05/04/19 02:35 [place] % (Auto) 3.7 % (0.0-7.3) 05/04/19 02:35 Eos % (Auto) 3.5 % (0.0-4.3) 05/04/19 02:35 Baso % (Auto) 0.3 % (0.0-1.8) 05/04/19 02:35 Lymph # 3.4 K/mm3 (1.2-5.4) 05/04/19 02:35 [place] # 0.5 K/mm3 (0.0-0.8) 05/04/19 02:35 Eos # 0.5 K/mm3 (0.0-0.4) H 05/04/19 02:35 Baso # 0.0 K/mm3 (0.0-0.1) 05/04/19 02:35 Seg Neutrophils % 66.6 % (40.0-70.0) 05/04/19 02:35 Seg Neutrophils # 8.9 K/mm3 (1.8-7.7) H 05/04/19 02:35 Sodium 144 mmol/L (137-145) 05/05/19 04:35 Potassium 3.6 mmol/L (3.6-5.0) 05/05/19 04:35 Chloride 103.6 mmol/L (98-107) 05/05/19 04:35 Carbon Dioxide 31 mmol/L (22-30) H 05/05/19 04:35 13 mmol/L 05/05/19 04:35 BUN 14 mg/dL (9-20) 05/05/19 04:35 0.8 mg/dL (0.8-1.5) 05/05/19 04:35 Estimated GFR > 60 ml/min 05/05/19 04:35 18 % 05/05/19 04:35 Glucose 116 mg/dL (75-100) H 05/05/19 04:35 Calcium 9.4 mg/dL (8.4-10.2) 05/05/19 04:35 Magnesium 2.00 mg/dL (1.7-2.3) 05/05/19 04:35 < 0.010 ng/mL (0.00-0.029) 05/04/19 06:11 NT-Pro-B Natriuret Pep 404.5 pg/mL (0-450) 05/04/19 03:57 Triglycerides 214 mg/dL (2-149) H 05/05/19 04:35 Cholesterol 182 mg/dL (50-199) 05/05/19 04:35 122 mg/dL (50-130) 05/05/19 04:35 41 mg/dL (40-59) 05/05/19 04:35 4.43 % 05/05/19 04:35 TSH 3.570 mlU/mL (0.270-4.200) 05/05/19 04:35 Yellow (Yellow) 05/04/19 07:58 Slightly-cloudy (Clear) 05/04/19 07:58 5.0 (5.0-7.0) 05/04/19 07:58 Ur Specific [place] 1.021 (1.003-1.030) 05/04/19 07:58 <15 mg/dl mg/dL (Negative) 05/04/19 07:58 Neg mg/dL (Negative) 05/04/19 07:58 Neg mg/dL (Negative) 05/04/19 07:58 Neg (Negative) 05/04/19 07:58 Neg (Negative) 05/04/19 07:58 Neg (Negative) 05/04/19 07:58 < 2.0 mg/dL (<2.0) 05/04/19 07:58 Ur Leukocyte Esterase Neg (Negative) 05/04/19 07:58 8.0 /HPF (0.0-6.0) H 05/04/19 07:58 2.0 /HPF (0.0-6.0) 05/04/19 07:58 U Epithel Cells (Auto) 8.0 /HPF (0-13.0) 05/04/19 07:58 2+ /HPF 05/04/19 07:58 Active Medications - Current Medications Current Medications: Generic Name Dose Route Start Last Admin Trade Name Freq PRN Reason Stop Dose Admin Acetaminophen 650 mg 05/04/19 11:52 05/07/19 06:01 Tylenol PO 650 mg Q6H PRN Administration Pain, Mild (1-3) Acetaminophen/Hydrocodone Bitart 1 each 05/04/19 15:29 [place] 5/325 PO Q4H PRN Pain, Moderate (4-6) Amlodipine Besylate 10 mg 05/07/19 10:00 05/07/19 09:02 Norvasc PO 10 mg DAILY TRUPTI Administration Aspirin 81 mg 05/05/19 10:00 05/07/19 09:02 Baby Aspirin PO 81 mg QDAY TRUPTI Administration Enoxaparin Sodium 40 mg 05/04/19 22:00 05/06/19 21:29 Lovenox SUB-Q 40 mg QDAY@2200 TRUPTI Administration Hydralazine HCl 10 mg 05/04/19 07:59 05/06/19 21:29 Apresoline IV 10 mg Q4HR PRN Administration Blood Pressure Hydralazine HCl 50 mg 05/05/19 15:00 05/07/19 13:33 Apresoline PO 50 mg Q8HR TRUPTI Administration Meclizine HCl 25 mg 05/04/19 15:30 Antivert PO Q8H PRN Vertigo Morphine Sulfate 2 mg 05/04/19 15:29 05/05/19 17:09 Morphine IV 2 mg Q4H PRN Administration Pain , Severe (7-10) Ondansetron HCl 4 mg 05/04/19 15:29 Zofran IV Q4H PRN Nausea And Vomiting Pantoprazole Sodium 40 mg 05/05/19 10:00 05/07/19 09:02 Protonix PO 40 mg QDAY TRUPTI Administration Zolpidem Tartrate 5 mg 05/04/19 15:29 05/05/19 21:36 Ambien PO 5 mg QHS PRN Administration Sleep
[2019-05-07] MEDS: LOVENOX SUB-Q SCH (22:05)
[2019-05-08] MEDS: APRESOLINE PO SCH (06:40)
--- NOTE | 2019-05-08 07:11 | Discharge Summary ---
Providers - Providers Date of Admission: 05/04/19 07:18 Date of discharge: 05/08/19 Attending physician: ART MARES 05/05/19 14:15 Consult to Physician [CONS] Routine Comment: Consulting Provider: SANDRA ALEMAN Physician Instructions: Reason For Exam: cardiac pause 05/06/19 13:37 Consult to Physician [CONS] Routine Comment: Consulting Provider: ANA BEDOLLA Physician Instructions: Reason For Exam: Type 2 AV block, pacemaker evaluation Primary care physician: [facility], Hospitalization Condition: Stable Hospital course: Patient is a 43 yo man with a history of hypertension off bp medications, asthma, morbid obesity bmi 52, vertigo, tobacco dependency and GERD who presents to [facility] ED with mild achy substernal to left side non-radiating intermittent chest pains that started 2 pm yesterday associated with dizziness without headaches. The dizziness felt like room spinning with lightheadedness. He denies SOB, n/v/abd pains or trauma. He came here to the ED on 04/28/19 with similar compliant except for the dizziness. He was discharged with PPI from ED. He denies muscle weakness or slurred speech. He is being admitted to the hospital because his blood pressure is 223/108 with cp. * 2D ECHO conclusions: The study quality is technically difficult, global left ventricular systolic function is normal, estimated EF is 60-65%, normal left ventricular diastolic filling is observed, there is mild aortic regurgitation, no pericardial effusion, the right ventricular cavity size is normal, the right ventricular global systolic function is normal * Stress test is negative * Carotid doppler negative -Dizziness most likely due to the hypoxia leading to the bradyarrhythmia: Outpatient sleep study test -Chest pains, costochondritis most likely, +FH and risk factors: stress test negative -Accelerated hypertension with urgency: ordered ECHO, start antihypertensives, with iv hydralzaine prn, counseling done, low salt diet -Acute hypoxic respiratory failure: continue 02 especically at night or while sleeping -Type 2 AV block bradyarrhythmia: Cardiology is following -CLAUDIA suspected: Pulmonology consulted, recommends outpatient sleep study -SIRS without organ dysfunction as evident by leukocytosis and HR 93: get blood cultures and repeat cbc -Tobacco dependency: youth counselor on stopping and offered nicotine patch -Allergy to Lisinopril with swelling -Hypokalemia: replete and recheck am -Noncompliance, youth counselor done -Morbid obesity, bmi 53; counseling done -Now patient is unsure father had heart problems in his 40s, DVt ppx with sq lovenox Disposition: continue inpatient telemetry, He had a negative stress test and ECHO and was going to be discharged home but he had a 3.4 s cardiac pause on Wednesday at 1:30 pm so discharge held. Cardiology consulted. The lopressor and clonidine stopped. Ordered carotid doppler which was negative. 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 Continuous pulse ox captured episodes of recurrent episodes of severe hypoxia, 75%, especially during sleep and some while resting, treated with O2, he needs outpatient sleep study. Continue continous o2 to see if 2 liters of O2 prevents the hypoxia and bradyarrhythmia, which is has. O2 was started at 2:07pm and patient had not been hypoxic and no more bradycardia/bradyarrhythmias. Arrange home o2 and then discharge. Disposition: DC TO HOME OR SELFCARE Time spent for discharge: 36 minutes Core Measure Documentation - Palliative Care Palliative Care/ Comfort Measures: Not Applicable - Core Measures Any of the following diagnoses?: none - VTE Discharge Requirements Deep Vein Thrombosis/Pulmonary Embolism Present on Admission: No Has pt received <5 days of overlap therapy or INR<2.0: No Anticoagulant overlap therapy prescribed at discharge: No Contraindication No Overlap Therapy order at DC: Not Indicated Exam - Physical Exam Narrative exam: Gen: WDWN, NAD, Awake, Alert, Orientated x 3, bmi 52 HEENT: NCAT, EOMI, PERRL, OP Clear Neck: supple, no adenopathy, no thyromegaly, no JVD CVS/Heart: RRR, normal S1S2, pulses present bilaterally Chest/Lungs: CTA B, Symmetrical chest expansion, good air entry bilaterally GI/Abdomen: soft, NTND, good bowel sounds, no guarding or rebound /Bladder: no suprapubic tenderness, no CVA or paraspinal tenderness Extermity/Skin: no c/c/e, no obvious rash MSK: FROM x 4 Neuro: CN 2-12 grossly intact, no new focal deficits Psych: calm - Constitutional Vitals: Temp Pulse Resp BP Pulse Ox 98.0 F 70 18 124/69 98 05/08/19 04:52 05/08/19 06:40 05/08/19 04:52 05/08/19 06:40 05/08/19 04:52 Plan Activity: other (no strenous activty until cleared by Container Coordinator including work) Diet: low salt Special Instructions: record daily BP diary, home oxygen via Durable Medical Equipment Needed Upon Discharge: Oxygen Additional Instructions: YOU must make an appointment with Lung Doctor aka Container Coordinator, Dr. Marrero/Neal/Jevon or Edson to schedule a SLEEP STUDY. [facility] [Primary Care Provider] - 3-5 Days MARGARET MARRERO MD [Staff Physician] - 7 Days Prescriptions: Meclizine [Antivert] 25 mg PO Q8H PRN #15 tablet PRN Reason: Vertigo Hydralazine HCl 50 mg PO TID #90 tablet Esomeprazole Magnesium [Nexium 24Hr] 20 mg PO QDAY PRN #7 capsule. PRN Reason: Indigestion amLODIPine [Norvasc] 10 mg PO DAILY #30 tab
[2019-05-08] MEDS: NORVASC PO SCH (09:56)
[2019-05-08] MEDS: PROTONIX PO SCH (09:56)
[2019-05-08] MEDS: BABY ASPIRIN PO SCH (09:56)
[2019-05-08 09:57] VITALS: BP 165/90
--- NOTE | 2019-05-08 11:57 | Progress Note ---
Assessment and Plan Chest pain / epigastric pain Currently resolved. AMI ruled out. S/p lexiscan MPI stress test on 05/05/2019 which was TDS, no significant ischemia, normal EF. Echo showed EF 60-65%, mild AR. Sinus bradycardia / sinus pause Improved. Pt was pending discharge home on Wednesday when he was noted to have 3.4sec sinus pause with intermittent sinus bradycardia on telemetry and thus cardiology was consulted. Pt states that he was sleeping around the time that the pause occurred. Pt with morbid obesity and suspected CLAUDIA. Additionally, pt was initiated on lopressor on this admission. Thyroid profile WNL. Lopressor d/c'd and hydralazine initiated. CPAP also initiated. No additional pauses or bradyarrhythmias noted since 05/05. Hypoxia / ? OHS Pt initiated on home O2. Obstructive sleep apnea Suspected. Pulmonary recommends OP sleep study. HTN Cont amlodipine and increase hydralazine to 100mg TID for more adequate BP control. GERD Cont PPI. Morbid obesity Weight loss encouraged. Medical noncompliance Due to lack of insurance. 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 He states he plans to secure insurance [employer]. Tobacco use Cessation encouraged. Currently stable cardiac status. Pt may discharge home from cardiology standpoint on current cardiac regimen. Recommend pt follow up in our office with Dr. SERENITY Bishop within 1-2 weeks of hospital discharge ([phone]). The patient has been seen in conjunction with Dr. Barr who agrees with the assessment and plan of care. Subjective Date of service: 05/08/19 Principal diagnosis: sinus pause Interval history: pt resting in bed, states he is feeling better, O2 in place via NC. tele reviewed - pt in SR with no SB or pauses noted overnight. Objective Last Vital Signs Temp 98.0 F 05/08/19 04:52 Pulse 77 05/08/19 09:56 Resp 18 05/08/19 04:52 BP 165/90 05/08/19 09:56 Pulse Ox 98 05/08/19 04:52 - Physical Examination General: Appears Well, Other (obese gentleman in no distress) HEENT: Positive: PERRL, Normocephaly, Mucus Membranes Moist Neck: Positive: neck supple, trachea midline Cardiac: Positive: Reg Rate and Rhythm, S1/S2 Lungs: Positive: Decreased Breath Sounds Neuro: Positive: Grossly Intact Abdomen: Positive: Soft. Negative: Tender Skin: Positive: Clear. Negative: Rash, Wound Musculoskeletal: No Pain Extremities: Present: normal. Absent: edema - EKG Sinus rhythms and dysrhythmias: sinus rhythm Repolarization changes or abnormalities: repolarization abn secondary to ventricular hypertrophy
--- NOTE | 2019-05-08 11:57 | Progress Note ---
Assessment and Plan Assessment and plan: Patient is a 43 yo man with a history of hypertension off bp medications, asthma, morbid obesity bmi 52, vertigo, tobacco dependency and GERD who presents to [facility] ED with mild achy substernal to left side non-radiating intermittent chest pains that started 2 pm yesterday associated with dizziness without headaches. The dizziness felt like room spinning with lightheadedness. He denies SOB, n/v/abd pains or trauma. He came here to the ED on 04/28/19 with similar compliant except for the dizziness. He was discharged with PPI from ED. He denies muscle weakness or slurred speech. He is being admitted to the hospital because his blood pressure is 223/108 with cp. * 2D ECHO conclusions: The study quality is technically difficult, global left ventricular systolic function is normal, estimated EF is 60-65%, normal left ventricular diastolic filling is observed, there is mild aortic regurgitation, no pericardial effusion, the right ventricular cavity size is normal, the right ventricular global systolic function is normal * Stress test is negative * Carotid doppler negative -Chest pains, costochondritis most likely, +FH and risk factors: stress test negative -Accelerated hypertension with urgency: ordered ECHO, start antihypertensives, with iv hydralzaine prn, counseling done, low salt diet -Dizziness without focal deficits most likely Bradyarrhythmia and hypoxia -Acute hypoxic respiratory failure: continue 02 especically at night or while sleeping -Positive FH as father had heart problems in his 40s -Type 2 AV block: Cardiology is following -CLAUDIA suspected: Pulmonology consulted, recommends outpatient sleep study -SIRS without organ dysfunction as evident by leukocytosis and HR 93: get blood cultures and repeat cbc -Tobacco dependency: staff counselor on stopping and offered nicotine patch -Allergy to Lisinopril with swelling -Hypokalemia: replete and recheck am -Noncompliance, staff counselor done -Morbid obesity, bmi 53; counseling done DVt ppx with sq lovenox Disposition: continue inpatient telemetry, He had a negative stress test and ECHO and was going to be discharged home but he had a 3.4 s cardiac pause on Wednesday at 1:30 pm so discharge held. Cardiology consulted. The lopressor and clonidine stopped. Ordered carotid doppler which was negative. This morning at 8:33am he had type 2 AV block and Senior Advocate, Dr. Reji Bishop approached me to recommend CLAUDIA assessment and pulmonary consult which I placed. Continuous pulse ox captured episodes of severe hypoxia, 75%, treated with O2, he needs outpatient sleep study. Continue continous o2 to see if 2 liters of O2 prevents the hypoxia Arrange home o2 and then discharge. History Interval history: Patient seen and examined. Follow up chest pains and dizziness. He had a negative stress test was going to be discharged but he had a 3.4 s cardiac pause so discharge held Hospitalist Physical - Physical exam Narrative exam: Gen: WDWN, NAD, Awake, Alert, Orientated x 3, bmi 52 HEENT: NCAT, EOMI, PERRL, OP Clear Neck: supple, no adenopathy, no thyromegaly, no JVD CVS/Heart: RRR, normal S1S2, pulses present bilaterally Chest/Lungs: CTA B, Symmetrical chest expansion, good air entry bilaterally GI/Abdomen: soft, NTND, good bowel sounds, no guarding or rebound /Bladder: no suprapubic tenderness, no CVA or paraspinal tenderness Extermity/Skin: no c/c/e, no obvious rash MSK: FROM x 4 Neuro: CN 2-12 grossly intact, no new focal deficits Psych: calm - Constitutional Vitals: Temp Pulse Resp BP Pulse Ox 98.0 F 77 18 165/90 98 05/08/19 04:52 05/08/19 09:56 05/08/19 04:52 05/08/19 09:56 05/08/19 04:52 General appearance: Present: no acute distress Results - Labs CBC & Chem 7: 05/05/19 04:35 05/05/19 04:35 Labs: Laboratory Last Values WBC 9.9 K/mm3 (4.5-11.0) 05/05/19 04:35 RBC 4.18 M/mm3 (3.65-5.03) 05/05/19 04:35 Hgb 12.5 gm/dl (11.8-15.2) 05/05/19 04:35 Hct 37.9 % (35.5-45.6) 05/05/19 04:35 MCV 91 fl (84-94) 05/05/19 04:35 MCH 30 pg (28-32) 05/05/19 04:35 MCHC 33 % (32-34) 05/05/19 04:35 RDW 14.6 % (13.2-15.2) 05/05/19 04:35 Plt Count 325 K/mm3 (140-440) 05/05/19 04:35 Lymph % (Auto) 25.9 % (13.4-35.0) 05/04/19 02:35 [place] % (Auto) 3.7 % (0.0-7.3) 05/04/19 02:35 Eos % (Auto) 3.5 % (0.0-4.3) 05/04/19 02:35 Baso % (Auto) 0.3 % (0.0-1.8) 05/04/19 02:35 Lymph # 3.4 K/mm3 (1.2-5.4) 05/04/19 02:35 [place] # 0.5 K/mm3 (0.0-0.8) 05/04/19 02:35 Eos # 0.5 K/mm3 (0.0-0.4) H 05/04/19 02:35 Baso # 0.0 K/mm3 (0.0-0.1) 05/04/19 02:35 Seg Neutrophils % 66.6 % (40.0-70.0) 05/04/19 02:35 Seg Neutrophils # 8.9 K/mm3 (1.8-7.7) H 05/04/19 02:35 Sodium 144 mmol/L (137-145) 05/05/19 04:35 Potassium 3.6 mmol/L (3.6-5.0) 05/05/19 04:35 Chloride 103.6 mmol/L (98-107) 05/05/19 04:35 Carbon Dioxide 31 mmol/L (22-30) H 05/05/19 04:35 13 mmol/L 05/05/19 04:35 BUN 14 mg/dL (9-20) 05/05/19 04:35 0.8 mg/dL (0.8-1.5) 05/05/19 04:35 Estimated GFR > 60 ml/min 05/05/19 04:35 18 % 05/05/19 04:35 Glucose 116 mg/dL (75-100) H 05/05/19 04:35 Calcium 9.4 mg/dL (8.4-10.2) 05/05/19 04:35 Magnesium 2.00 mg/dL (1.7-2.3) 05/05/19 04:35 < 0.010 ng/mL (0.00-0.029) 05/04/19 06:11 NT-Pro-B Natriuret Pep 404.5 pg/mL (0-450) 05/04/19 03:57 Triglycerides 214 mg/dL (2-149) H 05/05/19 04:35 Cholesterol 182 mg/dL (50-199) 05/05/19 04:35 122 mg/dL (50-130) 05/05/19 04:35 41 mg/dL (40-59) 05/05/19 04:35 4.43 % 05/05/19 04:35 TSH 3.570 mlU/mL (0.270-4.200) 05/05/19 04:35 Yellow (Yellow) 05/04/19 07:58 Slightly-cloudy (Clear) 05/04/19 07:58 5.0 (5.0-7.0) 05/04/19 07:58 Ur Specific [place] 1.021 (1.003-1.030) 05/04/19 07:58 <15 mg/dl mg/dL (Negative) 05/04/19 07:58 Neg mg/dL (Negative) 05/04/19 07:58 Neg mg/dL (Negative) 05/04/19 07:58 Neg (Negative) 05/04/19 07:58 Neg (Negative) 05/04/19 07:58 Neg (Negative) 05/04/19 07:58 < 2.0 mg/dL (<2.0) 05/04/19 07:58 Ur Leukocyte Esterase Neg (Negative) 05/04/19 07:58 8.0 /HPF (0.0-6.0) H 05/04/19 07:58 2.0 /HPF (0.0-6.0) 05/04/19 07:58 U Epithel Cells (Auto) 8.0 /HPF (0-13.0) 05/04/19 07:58 2+ /HPF 05/04/19 07:58 Active Medications - Current Medications Current Medications: Generic Name Dose Route Start Last Admin Trade Name Freq PRN Reason Stop Dose Admin Acetaminophen 650 mg 05/04/19 11:52 05/07/19 06:01 Tylenol PO 650 mg Q6H PRN Administration Pain, Mild (1-3) Acetaminophen/Hydrocodone Bitart 1 each 05/04/19 15:29 [place] 5/325 PO Q4H PRN Pain, Moderate (4-6) Amlodipine Besylate 10 mg 05/07/19 10:00 05/08/19 09:56 Norvasc PO 10 mg DAILY TRUPTI Administration Aspirin 81 mg 05/05/19 10:00 05/08/19 09:56 Baby Aspirin PO 81 mg QDAY TRUPTI Administration Enoxaparin Sodium 40 mg 05/04/19 22:00 05/07/19 22:05 Lovenox SUB-Q 40 mg QDAY@2200 TRUPTI Administration Hydralazine HCl 10 mg 05/04/19 07:59 05/06/19 21:29 Apresoline IV 10 mg Q4HR PRN Administration Blood Pressure Hydralazine HCl 50 mg 05/05/19 15:00 05/08/19 06:40 Apresoline PO 50 mg Q8HR TRUPTI Administration Meclizine HCl 25 mg 05/04/19 15:30 Antivert PO Q8H PRN Vertigo Morphine Sulfate 2 mg 05/04/19 15:29 05/05/19 17:09 Morphine IV 2 mg Q4H PRN Administration Pain , Severe (7-10) Ondansetron HCl 4 mg 05/04/19 15:29 Zofran IV Q4H PRN Nausea And Vomiting Pantoprazole Sodium 40 mg 05/05/19 10:00 05/08/19 09:56 Protonix PO 40 mg QDAY TRUPTI Administration Zolpidem Tartrate 5 mg 05/04/19 15:29 05/05/19 21:36 Ambien PO 5 mg QHS PRN Administration Sleep
[2019-05-08] MEDS ORDERED: APRESOLINE PO SCH ×2 (12:07→14:00)
== END 2019-05-08 17:00 | disposition home or self-care (01) | DRG 205 ==
LOC: ED 02:05 → 4A 07:18
PROVIDERS: ADMIT Internal Medicine; ATTEND Internal Medicine
PROC: 5A09357 Assistance with Respiratory Ventilation, Less than 24 Consecutive Hours, Continuous Positive Airway Pressure (ICD-10-PCS; principal; 2019-05-05)
DX: M94.0 Chondrocostal junction syndrome [Tietze] (principal); J96.01 Acute respiratory failure with hypoxia; Z68.43 Body mass index [BMI] 50.0-59.9, adult; R65.10 Systemic inflammatory response syndrome (SIRS) of non-infectious origin without acute organ dysfunction; I44.1 Atrioventricular block, second degree; I49.5 Sick sinus syndrome; F17.210 Nicotine dependence, cigarettes, uncomplicated; I10 Essential (primary) hypertension; J45.909 Unspecified asthma, uncomplicated; I16.0 Hypertensive urgency; E66.01 Morbid (severe) obesity due to excess calories; K21.9 Gastro-esophageal reflux disease without esophagitis; E87.6 Hypokalemia; G47.33 Obstructive sleep apnea (adult) (pediatric); I35.1 Nonrheumatic aortic (valve) insufficiency; Z88.8 Allergy status to other drugs, medicaments and biological substances; Z91.14 Patient's other noncompliance with medication regimen
CPT/HCPCS: 36415; 70450; 71046; 78452; 80048; 80061; 81001; 83735; 83880; 84443; 84484; 85025; 85027; 87040; 93005; 93010; 93017; 93306; 93880; 94660; G0378; A9502; J0360; J1650; J2270; J2785

== ENCOUNTER 2019-06-16 09:55 | Emergency (ER) | payer OTHER ==
--- NOTE | 2019-06-16 10:52 | Emergency Department Report ---
ED Extremity Problem HPI - General Chief complaint: Extremity Injury, Lower Stated complaint: CORNS ON FEET/PAIN Time Seen by Provider: 06/16/19 10:34 Source: patient Mode of arrival: Ambulatory Limitations: No Limitations - History of Present Illness Initial comments: 43-year-old male with a history of hypertension, obesity, and asthma presents to the hospital complaining of calluses to bilateral fifth toes 1 month. 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 He has tried various rmoh-npf-ifztnoy medication and soaking with improvement. Today pain was significant while working and so he came to the hospital for evaluation. He denies a history of diabetes. - Related Data Previous Rx's Medication Instructions Recorded Last Taken Type Acetaminophen [Acetaminophen TAB] 2 tab PO Q6H PRN #15 tablet 05/05/19 Unknown Rx Aspirin [Aspirin BABY CHEW TAB] 81 mg PO QDAY #30 tab.chew 05/05/19 Unknown Rx Esomeprazole Magnesium [Nexium 20 mg PO QDAY PRN #7 capsule. 05/05/19 Unknown Rx 24Hr] Meclizine [Antivert] 25 mg PO Q8H PRN #15 tablet 05/05/19 Unknown Rx Hydralazine HCl 50 mg PO TID #90 tablet 05/08/19 Unknown Rx amLODIPine [Norvasc] 10 mg PO DAILY #30 tab 05/08/19 Unknown Rx Ibuprofen [Motrin] 800 mg PO Q8HR PRN #20 tablet 06/16/19 Unknown Rx Allergies Allergy/AdvReac Type Severity Reaction Status Date / Time lisinopril Allergy Swelling Verified 11/17/17 04:26 ED Review of Systems ROS: Stated complaint: CORNS ON FEET/PAIN Other details as noted in HPI Comment: All other systems reviewed and negative ED Past Medical Hx - Past Medical History Previous Medical History?: Yes Hx Hypertension: Yes Hx Asthma: Yes Additional medical history: OBESITY, VERTIGO - Surgical History Past Surgical History?: Yes Additional Surgical History: cyst removed on left leg - Social History Smoking Status: Never Smoker Substance Use Type: None - Medications Home Medications: Home Medications Medication Instructions Recorded Confirmed Last Taken Type Acetaminophen [Acetaminophen TAB] 2 tab PO Q6H PRN #15 tablet 05/05/19 Unknown Rx Aspirin [Aspirin BABY CHEW TAB] 81 mg PO QDAY #30 tab.chew 05/05/19 Unknown Rx Esomeprazole Magnesium [Nexium 20 mg PO QDAY PRN #7 capsule. 05/05/19 Unknown Rx 24Hr] Meclizine [Antivert] 25 mg PO Q8H PRN #15 tablet 05/05/19 Unknown Rx Hydralazine HCl 50 mg PO TID #90 tablet 05/08/19 Unknown Rx amLODIPine [Norvasc] 10 mg PO DAILY #30 tab 05/08/19 Unknown Rx Ibuprofen [Motrin] 800 mg PO Q8HR PRN #20 tablet 06/16/19 Unknown Rx ED Physical Exam - General Limitations: No Limitations - Other Other exam information: Gen.: No acute distress Head: Atraumatic Eyes: Normal appearance ENT: Moist mucous membranes Neck: Normal appearance Chest: Clear to auscultation bilaterally Cardiovascular: Regular rate and rhythm Abdomen: Normal appearance, soft, nontender, no rebound or guarding, normal bowel sounds Back: Normal appearance, nontender Extremity: Full range of motion, see skin exam, no foot swelling Neuro: Alert, clear speech, no focal motor or sensory deficit Psychiatric: Appropriate Skin: Corns/callous formation to the upper bilateral fifth toes. Patient has topical skin treatment on the toe given a white appearance. There is no warmth, erythema, or redness. ED Course Vital Signs 06/16/19 10:02 Temperature 98.3 F Pulse Rate 72 Respiratory 16 Rate Blood Pressure 165/83 O2 Sat by Pulse 98 Oximetry ED Medical Decision Making - Medical Decision Making Although patient has tried a variety iubp-zsi-exsjmns medication for the past month for his corns he has not changed his footwear. He was encouraged to get properly fitting sneakers, continue btvf-cue-qrgpmib regimens, follow-up with a boot and shoe repairman. Critical care attestation.: If time is entered above; I have spent that time in minutes in the direct care of this critically ill patient, excluding procedure time. ED Disposition Clinical Impression: [place] of foot Disposition: DC-01 TO HOME OR SELFCARE Is pt being admited?: No Does the pt Need Aspirin: No Condition: Stable Additional Instructions: All about corns and calluses: Corns vs. calluses Symptoms Removal Causes and risk factors Home treatment Prevention Corns and calluses are hard, painful areas of skin that often develop on the feet in response to pressure or friction. They happen when the skin tries to protect an underlying area from injury, pressure, or rubbing. Neither is dangerous, but they can cause irritation. They are more common among people who wear ill-fitting shoes, have sweaty feet, and those who stand for long periods each day. They affect women more than men. Fast facts about corns and calluses Here are some facts about corns and calluses. There is more detailed information in the main article, Corns have a distinct, often hard, center, which may be surrounded by inflamed skin. Corns can be painful when pressed, but calluses are not usually painful. Calluses are usually larger than corns, and they vary in shape, while corns tend to be smaller, round and well-defined. Calluses normally develop on the soles of the feet, especially under the heels or balls, on the palms of the hands, and also on the knees. Corns often occur in acv-mfogqk-micfank parts of the skin. A pumice stone or qebx-emy-iobebgf topical medicine can be used to treat corns and calluses without going to see a doctor. Painful corns or calluses may need medical attention. Lifestyle and clothing changes can help prevent corns and calluses. What is the difference between corns and calluses? People sometimes mistakenly use the terms corns and calluses interchangeably, but they are not the same. What is a callus? [Corns foot] A corn is a type of callus. A callus is a section of skin that has become toughened and thick because of friction, pressure, or irritation. They often happen on the feet, but they can occur on the hands, elbows, or knees. Calluses are yellowish or pale in color. They feel lumpy to the touch, but, as the skin is thick, it may be less sensitive to touch compared with the skin around it. Calluses are often bigger and wider than corns, with less defined edges. They commonly appear where the skin frequently rubs against something, such as a bone, some item of footwear, or the ground. They typically form over the bony area just under the toes, areas of skin that take the person's weight when they are walking. What is a corn? A corn is a kind of callus, made of skin. They usually form on smooth, hairless skin surfaces, especially on the top or the side of the toes. They are usually small and circular, with a clearly defined center that can be hard of soft. Hard corns tend to be small, and they occur in areas of firm, hard skin, where the skin has thickened or where there are calluses, and in bony areas of the foot. Soft corns tend to be whitish in color, with a rubbery texture. They more commonly occur between the toes, in areas of moist and sweaty skin. Calluses and corns are not normally harmful, but sometimes they may lead to infections or ulcerations of the skin, especially among people with diabetes and those with poor circulation in the feet. Signs and symptoms [Calluses removal] Calluses have become toughened and thick due to friction. People can normally carry out treatment at home using ymys-sgp-ukcejkg products, but in especially painful cases may wish to see a boot and shoe repairman. Corns and calluses can make a person feel as if they are walking on stones. The following signs or symptoms may indicate that there is a corn or callus: a raised, hardened bump a thick and rough area of skin skin that is flaky and dry or flaky and waxy pain or tenderness under the skin If a corn or callus becomes very inflamed or painful, the patient should seek medical advice. Patients with poor circulation, fragile skin, or nerve problems and numbness in the feet should talk to their doctors before treating corns and calluses at home. People with diabetes, peripheral neuropathy, and peripheral arterial disease need to be particularly watchful. Removal A boot and shoe repairman might cut away some of the thick skin with a scalpel to relieve pressure on the tissues that lie beneath. People should not cut the corn or callus themself as it could make it more painful and the risk of infection is high. More information on removing calluses and corns can be found in the "home remedies" section below. Causes and risk factors The following risk factors are linked to a higher incidence of corns and calluses: anything that causes pressure or friction on the skin shoes that are too tight or too high-heeled, causing pressure shoes that are too loose, causing friction a badly placed seam in a shoe that rubs against the skin socks that do not fit well wearing no socks walking barefoot regularly, as the skin will thicken to protect itself repeated actions such as jogging or walking in a particular way older age, as there is less fatty tissue in the skin, which means less padding and a higher risk of developing calluses, especially on the ball of the foot Calluses often appear on the feet, but friction and pressure can also cause calluses on the hands. People who frequently cycle or use hand tools without wearing gloves can develop them. Repeated kneeling or resting elbows on a table can cause calluses on the knees or elbows. Bunions, hammertoe, and other foot problems and deformities increase the risk of corns and calluses. A bunion is an abnormal, bony bump that develops on the joint at the base of the big toe. A hammertoe is when a toe becomes curled up like a claw. Home treatment [Corns calluses pumice] People can treat corns and calluses at home with a pumice stone or salicylic acid. Many people treat corns and calluses at home, using pnkv-epu-ovugntj products from a pharmacy. Tips include: Soaking the corn or callus in warm water for 5 to 10 minutes, then filing or scraping the area with a pumice stone. Circular or sideways motions help remove skin. Using moisturizer every day on the feet. Products that contain salicylic acid, urea, or ammonium lactate help soften the dry skin to prepare it for filing. If repetitive actions are causing the corns and calluses, avoiding these actions can often solve the problem. Shoes and socks that fit properly, protective pads or insoles, and other self- care measure can help. Foam or silicone wedges may be used between the toes to reduce pressure on a corn. Orthotics are custom-made padded shoe inserts which may help people with an underlying foot deformity. A range of orthiotic products are available for purchase online. When to see a doctor If the corn or callus is very painful, or if the person has diabetes, fragile skin, or circulatory problems, it is best to consult a doctor or a boot and shoe repairman, who is specialized in foot care. The doctor will examine the feet, ask the person about their lifestyle, and they may check their footwear. A boot and shoe repairman, or foot doctor, may remove some of the hard skin that surrounds the corn so that the center of it can be removed. After trimming the skin, the doctor may apply a patch with 40 percent salicylic acid. The patient will need to replace the patch periodically. A pumice stone or metal nail file is usually used to rub away skin before applying a new patch. If there is infection or a risk of infection, the doctor may prescribe antibiotic ointment. Red and swollen skin around the corn or callus can indicate an infection. If the doctor suspects there may be an underlying bone structure problem, they may refer the patient for an x-ray, and possibly surgery. What is salicylic acid? The standard treatment for corns and calluses is salicylic acid, which is also used in wart treatment. This is a keratolytic, which means it dissolves the protein, or keratin, that makes up the corn and the skin around it. It is available in creams, pads, and plasters, or it can be applied using an applicator or a dropper. The top of the skin will turn white, and the tissue can be cut or filed away. Once the corn or callus has gone, the individual can soak and rub down the area with a pumice stone each week, if the hard skin shows signs of from coming back. Salicylic acid comes in different concentrations. Stronger doses may work faster, but it will need a prescription. The ingredients can irritate surrounding skin, so care should be taken when applying it. Do not use this on a cracked corn or callus. Cautions When treating corns and calluses at home, it is important not to remove too much skin, as this can lead to pain and infection. Older people and those with diabetes should not scrape, file, or trim their feet at home, as this can lead to infections that are difficult to cure. It could lead to ulcers on the skin. They should ask a doctor before using salicylic acid, as this, too, can cause ul cers. Any cutting or paring of skin is best done by a boot and shoe repairman or other health professional. Repeated or regular trimming may be needed, as the corn or callus may recur. Prevention The following measures may help reduce the risk of developing corns and calluses: [Corns calluses footwear] Wearing well-fitting socks and footwear can help to prevents corns and calluses. Wash the feet with soap and water every evening. Use a scrubbing brush. Apply a specially moisturizing foot cream after washing and drying them well. Do not use a body lotion. Foot lotions are available for purchase online. Wear well-fitting shoes and socks with seams that do not rub the skin. Shop for shoes later in the day, when the feet are at their largest, because feet swell slightly as the day progresses. Deal with any foot pain or skin irritation as it arises. Have a regular check up with a record retrieval specialist. When trimming the toenails, cut straight across, and not down at angles or over the edges. Use a pumice stone or foot file regularly, and remove hard skin gently. Pumice stones are available for purchase online. Wear clean socks every day and use talcum powder to prevent sweating. Talcum powder is available for purchase online. Protect the hands when using tools, either with padded gloves or by padding the tool handles. With treatment, corns and calluses can be removed, but they may return without lifestyle or footwear changes. Prescriptions: Ibuprofen [Motrin] 800 mg PO Q8HR PRN #20 tablet PRN Reason: Pain , Severe (7-10) Referrals: TOBY WALL DPM [Staff Physician] - 3-5 Days (podiatry) [facility] [place] [Provider Group] - 3-5 Days Forms: Work/School Release Form(ED) Time of Disposition: 10:53
[2019-06-16 11:41] VITALS: BP 162/77
== END 2019-06-16 11:42 | disposition home or self-care (01) ==
LOC: ED 09:55
DX: L84 Corns and callosities (principal); I10 Essential (primary) hypertension; J45.909 Unspecified asthma, uncomplicated; Z88.8 Allergy status to other drugs, medicaments and biological substances

== ENCOUNTER 2019-07-29 06:50 | Emergency (ER) | payer SELFPAY ==
[2019-07-29] MEDS ORDERED: hydrALAZINE 25 MG TAB PO ONE (07:34)
[2019-07-29] MEDS ORDERED: amLODIPine 5 MG TAB PO ONE (07:34)
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
[2019-07-29 08:37] VITALS: BP 169/69
== END 2019-07-29 08:45 | disposition home or self-care (01) ==
LOC: ED 06:50
DX: S39.012A Strain of muscle, fascia and tendon of lower back, initial encounter (principal); I10 Essential (primary) hypertension; V49.49XA Driver injured in collision with other motor vehicles in traffic accident, initial encounter; Y93.89 Activity, other specified; Y92.89 Other specified places as the place of occurrence of the external cause; Y99.8 Other external cause status
CPT/HCPCS: 72100